=== PATIENT | male | born 1945 | race Native Hawaiian/Other Pacific Islander ===

== ENCOUNTER 2016-07-01 16:04 | Inpatient (IN) | payer MEDICAID, OTHER ==
[2016-07-01 16:48] VITALS: BMI 24.2
--- NOTE | 2016-07-01 17:55 | C.PDOC ---
History Of Present Illness <Rajan Shea - Last Filed: 07/01/16 22:08> <Olivia Oropeza - Last Filed: 07/02/16 09:33> The patient presents to the ED accompanied by son for evaluation of an episode of shakiness which occurred this afternoon. As per son, patient began experiencing generalized shakiness to his bilateral arms and legs which lasted around 10-15 minutes prior to resolution. As per son, patient did not lose consciousness and had no post-ictal period. Patient states he has a slight cough , but otherwise denies any pain, sore throat, runny nose, urinary/bowel incontinence. History obtained via son due to language barrier. (MireyaRajan smith Duarte) History Per: Patient, Family (son ) History/Exam Limitations: language barrier Onset/Duration Of Symptoms: Mins Current Symptoms Are (Timing): Better Associated Symptoms Preceding Syncopal Episode: No Predromal Symptoms (Sudden Onset) Seizure Or Post-ictal Symptoms: denies: Post-ictal Period, Incontinent Of Urine , Incontinent Of Stool Fall Associated With With Symptoms: No Additional History Per: Patient, Family <Rajan Shea - Last Filed: 07/01/16 22:08> <Olivia Oropeza - Last Filed: 07/02/16 09:33> Chief Complaint (Nursing): Weakness/Neurological Deficit Past Medical History Reviewed: Historical Data, Nursing Documentation, Vital Signs - Medical History PMH: No Chronic Diseases Surgical History: No Surg Hx Family History: States: Unknown Family Hx <Rajan Shea - Last Filed: 07/01/16 22:08> - Medical History PMH: HTN, Hypercholesterolemia Surgical History: CABG (2010) - Social History Hx Alcohol Use: Yes Hx Substance Use: No - Immunization History Hx Tetanus Toxoid Vaccination: No Hx Influenza Vaccination: No Hx Pneumococcal Vaccination: No <Olivia Oropeza - Last Filed: 07/02/16 09:33> Vital Signs: Last Vital Signs Temp 101.0 F H 07/02/16 08:57 Pulse 83 07/02/16 08:57 Resp 20 07/02/16 08:57 BP 119/62 07/02/16 08:57 Pulse Ox 97 07/02/16 08:57 Review Of Systems ENT: Negative for: Nose Discharge, Throat Pain Respiratory: Positive for: Cough (mild ) Genitourinary: Negative for: Incontinence Neurological: Positive for: Other (+generalized shakiness to arms and legs ) <Rajan Shea - Last Filed: 07/01/16 22:08> Physical Exam - Physical Exam Appears: Non-toxic, No Acute Distress Skin: Normal Color, Warm, Dry Head: Atraumatic, Normacephalic Eye(s): bilateral: Normal Inspection, EOMI Oral Mucosa: Moist Neck: Normal ROM, Supple Chest: Symmetrical, No Deformity, No Tenderness Cardiovascular: Rhythm Regular, No Murmur Respiratory: Normal Breath Sounds, No Rales, No Rhonchi, No Wheezing Back: Normal Inspection, No Vertebral Tenderness, No Paraspinal Tenderness Extremity: Normal ROM, Capillary Refill (less than 2 seconds) Neurological/Psych: Oriented x3, Normal Speech, Normal Cognition Gait: Steady <Rajan Shea - Last Filed: 07/01/16 22:08> ED Course And Treatment - Laboratory Results Result Diagrams: 07/01/16 19:39 07/01/16 19:39 ECG: Interpreted By Me, Viewed By Me ECG Rhythm: Sinus Tachycardia Interpretation Of ECG: Sinus Tachycardia at rate 104. Right Bundle Branch Block. 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 Rate From EC O2 Sat by Pulse Oximetry: 100 (on RA) Pulse Ox Interpretation: Normal Progress Note: labs, EKG, CXR ordered and reviewed. Patient received Tylenol PO and IV Fluids. <Rajan Shea - Last Filed: 07/01/16 22:08> - Laboratory Results Result Diagrams: 07/01/16 19:39 07/01/16 19:39 O2 Sat by Pulse Oximetry: 98 <Olivia Oropeza - Last Filed: 07/02/16 09:33> Disposition <Rajan Shea - Last Filed: 07/01/16 22:08> <Olivia Oropeza - Last Filed: 07/02/16 09:33> - Disposition Disposition: HOSPITALIZED - Scribe Statement The provider has reviewed the documentation as recorded by the Scribe (Danielle Gonzalez) <Rajan Shea - Last Filed: 07/01/16 22:08> <Olivia Oropeza - Last Filed: 07/02/16 09:33> - Scribe Statement Provider Attestation: All medical record entries made by the Scribe were at my direction and personally dictated by me. I have reviewed the chart and agree that the record accurately reflects my personal performance of the history, physical exam, medical decision making, and the department course for this patient. I have also personally directed, reviewed, and agree with the discharge instructions and disposition. (Rajan Shea) Addendum <Olivia Oropeza - Last Filed: 07/02/16 09:33> Addendum: 07/02/16 09:33 This patient was not seen by me. My name is on his chart by error. (Olivia Oropeza)
[2016-07-01] MEDS ORDERED: Sodium Chloride 0.9% 1,000 ML IV ONE (19:13)
[2016-07-01 19:42] LABS: BASO % 0.3 % (0.0-2.0); EOS # 0.1 K/uL (0.0-0.7); EOS % 1.5 % (0.0-4.0); LYMPH # 0.8 K/uL (1.0-4.3); LYMPH % 9.1 % (20.0-40.0); MEAN CELL VOLUME 99.3 fL (80.0-94.0); MEAN CORPUSCULAR HEMOGLOBIN 33.3 pg (27.0-31.0); MEAN CORPUSCULAR HGB CONC 33.6 g/dL (33.0-37.0); MEAN PLATELET VOLUME 9.4 fL (7.2-11.7); MONO # 1.2 K/uL (0.0-0.8); MONO % 13.1 % (0.0-10.0); PLATELET COUNT 225 K/uL (130-400); RED CELL DISTRIBUTION WIDTH 13.7 % (11.5-14.5); WHITE BLOOD COUNT 9.2 K/uL (4.8-10.8)
[2016-07-01 19:51] LABS: ALB/GLOB RATIO 1.1 (1.0-2.1); BILIRUBIN,TOTAL 1.6 mg/dL (0.2-1.3); TOTAL PROTEIN 6.8 g/dL (6.3-8.3)
[2016-07-01 19:52] LABS: CALCIUM 9.2 mg/dl (8.6-10.4); MAGNESIUM 2.1 mg/dL (1.6-2.3)
[2016-07-01 19:54] LABS: RBC URINE 8 /hpf (0-3); URINE BACTERIA RARE (<OCC); URINE BILIRUBIN NEGATIVE (NEGATIVE); URINE BLOOD 2+ (NEGATIVE); URINE GLUCOSE (UA) 3+ mg/dL (Normal); URINE KETONE NEGATIVE (NEGATIVE); URINE LEUKOCYTE ESTERASE NEG Leu/uL (Negative); URINE PROTEIN 2+ mg/dL (NEGATIVE); URINE UROBILINOGEN NORMAL mg/dL (0.2-1.0); WBC URINE 2 /hpf (0-5)
[2016-07-01 19:55] LABS: URINE COLOR YELLOW (YELLOW)
[2016-07-01 20:18] LABS: EOSINOPHIL 2 % (0-4); NEUTROPHIL 80 % (50-75); TOTAL CELLS COUNTED 100
[2016-07-01 20:19] LABS: LARGE PLATELETS PRESENT
[2016-07-01 21:02] LABS: VENOUS BLOOD GAS BASE EXCESS -5.2 mmol/L (0.0-2.0); VENOUS BLOOD GAS PCO2 40 mmHg (40-60); VENOUS BLOOD PH 7.32 (7.32-7.43)
--- NOTE | 2016-07-02 01:18 | CP.PCM.HP ---
<Yajaira Baker - Last Filed: 07/02/16 05:32> History of Present Illness - History of Present Illness History of Present Illness: Internal medicine H & P for Dr. Marv Baker, PGY-1 Pt S & E at bedside. 70M w/DM, HTN, HLD, Hx DE s/p CABG admitted for acute on chronic renal failure , fever. History supplemented by son/[id number]- they report that pt had abnormal behavior on day of admission, was "talking low", had whole body shaking , complaining of fever, temperature taken at home was 1013. They report that pt does not take evening diabetes medication unless he eats something sweet. Pt has not been to see PMD in approximately 1 yr. Pt admits to F/C, feels cold, myalgias, cough. Pt denies N/V, SOB, CP, abdominal pain, headache, vision changes, changes to bowel or bladder habits, polyphagia, polydipsia, hematuria, hematochezia, numbness or tingling of extremities. PMH: See above PSH CABG - 3 vessel disease All: NKA SH: Drinks 100ml of Scotch nightly, uses chewing tobacco, denies smoking cigarettes, denies illicit drugs PMD: [facility] Present on Admission - Present on Admission Any Indicators Present on Admission: No History of DVT/PE: No History of Uncontrolled Diabetes: No Urinary Catheter: No Decubitus Ulcer Present: No Review of Systems - Review of Systems All systems: reviewed and no additional remarkable complaints except - Constitutional Constitutional: Chills, Fever. absent: Excessive Sweating, Headache - EENT Eyes: absent: Change in Vision Nose/Mouth/Throat: absent: Sore Throat - Cardiovascular Cardiovascular: absent: Chest Pain, Diaphoresis, Leg Edema - Respiratory Respiratory: Cough. absent: Wheezing - Gastrointestinal Gastrointestinal: absent: Abdominal Pain, Constipation, Diarrhea, Hematemesis, Hematochezia, Nausea, Vomiting - Genitourinary Genitourinary: absent: Dysuria, Hematuria - Musculoskeletal Musculoskeletal: Myalgias - Integumentary Integumentary: absent: Rash - Neurological Neurological: absent: Numbness, Tingling Past Patient History - Past Social History Smoking Status: Never Smoked - CARDIAC Hx Hypercholesterolemia: Yes Hx Hypertension: Yes - ENDOCRINE/METABOLIC Hx Endocrine Disorders: Yes Hx Diabetes Mellitus Type 2: Yes - PSYCHIATRIC Hx Substance Use: No - SURGICAL HISTORY Hx Coronary Artery Bypass Graft: Yes (2010) - ANESTHESIA Hx Anesthesia: Yes Hx Anesthesia Reactions: No Meds Allergies/Adverse Reactions: Allergies Allergy/AdvReac Type Severity Reaction Status Date / Time No Known Allergies Allergy Verified 07/01/16 16:37 Physical Exam - Constitutional Appears: Non-toxic, No Acute Distress, Other (pt laying under blanket with family's coats on top, is wearing knitted hat) - Head Exam Head Exam: ATRAUMATIC, NORMAL INSPECTION, NORMOCEPHALIC - Eye Exam Eye Exam: EOMI, Normal appearance, PERRL Pupil Exam: NORMAL ACCOMODATION, PERRL - ENT Exam ENT Exam: Mucous Membranes Moist, Normal Exam - Neck Exam Neck exam: Positive for: Full Rom, Normal Inspection - Respiratory Exam Respiratory Exam: Clear to Auscultation Bilateral, NORMAL BREATHING PATTERN. absent: Accessory Muscle Use, Decreased Breath Sounds, Rales, Rhonchi, Wheezes, Respiratory Distress - Cardiovascular Exam Cardiovascular Exam: REGULAR RHYTHM, +S1, +S2 - GI/Abdominal Exam GI & Abdominal Exam: Normal Bowel Sounds, Soft. absent: Distended, Firm, Guarding, Hernia, Tenderness - Extremities Exam Extremities exam: Positive for: normal inspection. Negative for: pedal edema - Back Exam Back exam: NORMAL INSPECTION. absent: tenderness - Neurological Exam Neurological exam: Alert, CN II-XII Intact, Oriented x3 - Psychiatric Exam Psychiatric exam: Normal Affect, Normal Mood - Skin Skin Exam: Dry, Intact, Normal Color, Warm (hot) Results - Vital Signs Recent Vital Signs: Last Vital Signs Temp 99.5 F 07/01/16 22:20 Pulse 90 07/01/16 22:20 Resp 20 07/01/16 22:20 BP 135/74 07/01/16 22:20 Pulse Ox 99 07/01/16 22:20 - Labs Result Diagrams: 07/01/16 19:39 07/01/16 19:39 Assessment & Plan - Assessment and Plan (Free Text) Assessment: Acute Renal Insufficiency Admit to Med-surg BUN 38 Cr 2.6 NS@100 Monitor Consider obtaining nephro consult if AM labs do not show improved renal function Fever WBC 9.2 Rapid flu neg U/A neg FU blood cxr FU urine cxr Tylenol PRN Monitor DM ISS Accuchecks FU A1c Diabetic diet Re-inforced need to be compliant with diabetic medications to pt HTN Cont home med: ASA, Lisinopril, Lopressor HLD Cont home med: Crestor Constipation Cont home med: Dulcolax GI/DVT ppx SCDs Pepcid Heparin Dispo PT eval VS Q8H DW attending - Date & Time Date: 07/01/16 Time: 10:00 <Dev Almaguer - Last Filed: 07/02/16 06:40> Results - Vital Signs Recent Vital Signs: Last Vital Signs Temp 98.3 F 07/02/16 02:01 Pulse 92 H 07/02/16 03:08 Resp 18 07/02/16 03:08 BP 133/88 07/02/16 02:01 Pulse Ox 98 07/02/16 03:08 - Labs Result Diagrams: 07/01/16 19:39 07/01/16 19:39 Assessment & Plan - Date & Time Date: 07/02/16 (I have seen and examined the patient. I agree with the findings and plan of care as documented by Dr. Baker. Patient with acute renal insufficiency. Feeling ill recently with fevers. Dehydration may be contributing to acute renal insufficiency. IVF and recheck renal status in AM. Check blood and urine cultures. Check rapid flu. For history of diabetes, accucheck and sliding scale. Monitor for acute changes.) Time: 06:39 Attending/Attestation - Attestation I have personally seen and examined this patient.: Yes I have fully participated in the care of the patient.: Yes I have reviewed all pertinent clinical information: Yes
[2016-07-02] MEDS: Sodium Chloride 0.9% 1,000 ML IV SCH ×3 (02:22→21:00)
[2016-07-02] MEDS: (Novolog) Insulin Aspart, Recombinant 100 u/ml 10 ml vial SC SCH ×4 (09:01→22:01)
[2016-07-02] MEDS: Metoprolol Succinate 50 mg XL Tab PO SCH (10:03)
[2016-07-02] MEDS: Ciprofloxacin 400mg/200ml D5W 200 ML IVPB SCH (12:40)
[2016-07-02 13:19] LABS: BASO % 0.7 % (0.0-2.0); EOS # 0.2 K/uL (0.0-0.7); EOS % 2.9 % (0.0-4.0); HEMATOCRIT 30.7 % (35.0-51.0); LYMPH # 0.9 K/uL (1.0-4.3); LYMPH % 13.2 % (20.0-40.0); MEAN CELL VOLUME 99.5 fL (80.0-94.0); MEAN CORPUSCULAR HEMOGLOBIN 33.6 pg (27.0-31.0); MEAN CORPUSCULAR HGB CONC 33.8 g/dL (33.0-37.0); MEAN PLATELET VOLUME 8.8 fL (7.2-11.7); MONO # 0.8 K/uL (0.0-0.8); MONO % 11.2 % (0.0-10.0); NRBC % 0.1 % (0.0-2.0); RED CELL DISTRIBUTION WIDTH 13.7 % (11.5-14.5); WHITE BLOOD COUNT 6.9 K/uL (4.8-10.8)
[2016-07-02 13:30] LABS: POTASSIUM 4.5 mmol/L (3.6-5.2)
[2016-07-02 13:32] LABS: BILIRUBIN,TOTAL 1.6 mg/dL (0.2-1.3); TOTAL PROTEIN 5.8 g/dL (6.3-8.3)
[2016-07-02 13:33] LABS: CALCIUM 8.3 mg/dl (8.6-10.4)
[2016-07-02] MEDS: metroNIDAZOLE IV 500 mg/100 ml 100 ML IVPB SCH ×2 (14:18→22:00)
--- NOTE | 2016-07-02 16:59 | CP.PCM.PN ---
Subjective - Date & Time of Evaluation Date of Evaluation: 07/02/16 Time of Evaluation: 08:55 - Subjective Subjective: Medicine Note- Hospitalist Service Patient was seen and examined at bedside. Patient reports that he has some generalized weakness. Otherwise, patient reports no acute complaints. He is tolerating PO Diet, normal bowel movements. Fevers overnight, patient is unsure why. No additional events overnight. Objective - Vital Signs/Intake and Output Vital Signs (last 24 hours): Temp Pulse Resp BP Pulse Ox 97.8 F 83 20 119/62 98 07/02/16 11:02 07/02/16 08:57 07/02/16 08:57 07/02/16 08:57 07/02/16 09:33 Intake and Output: 07/02/16 07/02/16 06:59 18:59 Intake Total 620 Balance 620 - Medications Medications: Current Medications Acetaminophen (Tylenol 325mg Tab) 650 mg PO Q6 PRN PRN Reason: Fever >100.4 F Last Admin: 07/02/16 10:02 Dose: 650 mg Aspirin (Ecotrin) 81 mg PO DAILY [facility] Last Admin: 07/02/16 10:01 Dose: 81 mg Bisacodyl (Dulcolax) 10 mg PO HS [facility] Famotidine (Pepcid) 20 mg PO BID [facility] Last Admin: 07/02/16 10:01 Dose: 20 mg Heparin Sodium (Porcine) (Heparin) 5,000 units SC Q12 [facility] Last Admin: 07/02/16 10:02 Dose: 5,000 units Sodium Chloride (Sodium Chloride 0.9%) 1,000 mls @ 100 mls/hr IV .Q10H [facility] Last Admin: 07/02/16 12:43 Dose: 100 mls/hr Ciprofloxacin (Cipro 400mg/200ml Dsw) 200 mls @ 133 mls/hr IVPB DAILY [facility] Stop: 07/07/16 11:46 Last Admin: 07/02/16 12:40 Dose: 133 mls/hr Metronidazole (Flagyl) 100 mls @ 100 mls/hr IVPB Q8 [facility] Stop: 07/07/16 14:01 Last Admin: 07/02/16 14:18 Dose: 100 mls/hr Insulin Aspart (Novolog) 0 unit SC ACHS [facility] PRN Reason: Protocol Last Admin: 07/02/16 12:41 Dose: 3 unit Lisinopril (Zestril) 10 mg PO DAILY [facility] Last Admin: 07/02/16 10:03 Dose: 10 mg Metoprolol Succinate (Toprol Xl) 50 mg PO DAILY [facility] Last Admin: 07/02/16 10:03 Dose: 50 mg Rosuvastatin Calcium (Crestor) 5 mg PO HS [facility] - Labs Labs: 07/02/16 13:15 07/02/16 13:15 Assessment and Plan - Assessment and Plan (Free Text) Assessment: Acute Renal Insufficiency Admit to Med-surg BUN/Cr improved slightly from 38/2.6 to 33/2.1 NS@100 Monitor Fever of unknown origin WBC 9.2 Multiple fevers overnight- Tmax 101.2 on 07/01/16 Rapid flu neg U/A neg Blood cx- pending Urine Cx- no growth Tylenol PRN Monitor DM ISS Accuchecks FU A1c Diabetic diet Re-inforced need to be compliant with diabetic medications to pt HTN Cont home med: ASA, Lisinopril, Lopressor HLD Cont home med: Crestor 5mg PO HS Constipation Cont home med: Dulcolax 10mg PO HS GI/DVT ppx SCDs Pepcid 20mg PO BID Heparin 5000U SC Q12h
--- NOTE | 2016-07-02 18:14 | RAD ---
HISTORY: Sepsis Patient COMPARISON: Comparison chest dated 05/15/2013. FINDINGS: LUNGS: Poor inspiration with low lung volumes and mild crowded bronchovascular markings. Suspect mild bibasilar atelectasis left greater than right. . PLEURA: No significant pleural effusion identified, no pneumothorax apparent. CARDIOVASCULAR: Cardiomegaly. Sternotomy wires. OSSEOUS STRUCTURES: Mild multilevel degenerative spondylosis of the thoracic spine VISUALIZED UPPER ABDOMEN: Normal. OTHER FINDINGS: None. IMPRESSION: Poor inspiration with low lung volumes and mild crowded bronchovascular markings. Suspect mild bibasilar atelectasis left greater than right. .
[2016-07-02] MEDS: Bisacodyl 5mg EC Tab PO SCH (21:59)
[2016-07-03] MEDS: metroNIDAZOLE IV 500 mg/100 ml 100 ML IVPB SCH ×3 (05:46→22:09)
[2016-07-03] MEDS: Sodium Chloride 0.9% 1,000 ML IV SCH ×4 (05:47→22:11)
--- NOTE | 2016-07-03 06:54 | CP.PCM.PN ---
<RobbyMoise - Last Filed: 07/03/16 22:22> Subjective - Date & Time of Evaluation Date of Evaluation: 07/03/16 Time of Evaluation: 08:30 - Subjective Subjective: Medicine Note- Hospitalist Service Patient was seen and examined at bedside. Patient reports that he has a mildly sore throat and persistent cough. Duaghter and son was at bedside. Per the son , patient has been having interval moments of confusion and memory loss. He said the nurse told him that the patient had pulled his IV and was sitting in blood soaked sheets for an unknown amount of time. Patient reported he had no recollection of this. The son also states that the other day, he came to visit the patient for some time and left. Later on, a different family member had visited the patient and stated that the patient was asking for his son and where he was, not recalling that the son had visited earlier that day. Today, the patient reports that he does recall his son visiting yesterday. Objective - Vital Signs/Intake and Output Vital Signs (last 24 hours): Temp Pulse Resp BP Pulse Ox 98.2 F 89 20 115/68 100 07/03/16 00:00 07/03/16 00:00 07/03/16 00:00 07/03/16 00:00 07/03/16 00:00 Intake and Output: 07/02/16 07/03/16 18:59 06:59 Intake Total 1820 1800 Balance 1820 1800 - Medications Medications: Current Medications Acetaminophen (Tylenol 325mg Tab) 650 mg PO Q6 PRN PRN Reason: Fever >100.4 F Last Admin: 07/02/16 10:02 Dose: 650 mg Aspirin (Ecotrin) 81 mg PO DAILY [facility] Last Admin: 07/02/16 10:01 Dose: 81 mg Bisacodyl (Dulcolax) 10 mg PO HS [facility] Last Admin: 07/02/16 21:59 Dose: 10 mg Famotidine (Pepcid) 20 mg PO BID [facility] Last Admin: 07/02/16 18:01 Dose: 20 mg Heparin Sodium (Porcine) (Heparin) 5,000 units SC Q12 [facility] Last Admin: 07/02/16 22:00 Dose: 5,000 units Sodium Chloride (Sodium Chloride 0.9%) 1,000 mls @ 100 mls/hr IV .Q10H [facility] Last Admin: 07/03/16 05:47 Dose: 100 mls/hr Ciprofloxacin (Cipro 400mg/200ml Dsw) 200 mls @ 133 mls/hr IVPB DAILY [facility] Stop: 07/07/16 11:46 Last Admin: 07/02/16 12:40 Dose: 133 mls/hr Metronidazole (Flagyl) 100 mls @ 100 mls/hr IVPB Q8 [facility] Stop: 07/07/16 14:01 Last Admin: 07/03/16 05:46 Dose: 100 mls/hr Insulin Aspart (Novolog) 0 unit SC ACHS [facility] PRN Reason: Protocol Last Admin: 07/02/16 22:01 Dose: Not Given Lisinopril (Zestril) 10 mg PO DAILY [facility] Last Admin: 07/02/16 10:03 Dose: 10 mg Metoprolol Succinate (Toprol Xl) 50 mg PO DAILY [facility] Last Admin: 07/02/16 10:03 Dose: 50 mg Rosuvastatin Calcium (Crestor) 5 mg PO HS [facility] Last Admin: 07/02/16 21:59 Dose: 5 mg - Labs Labs: 07/02/16 13:15 07/02/16 13:15 - Constitutional Appears: Non-toxic, No Acute Distress - Head Exam Head Exam: ATRAUMATIC, NORMAL INSPECTION, NORMOCEPHALIC - Eye Exam Pupil Exam: NORMAL ACCOMODATION, PERRL - ENT Exam ENT Exam: Mucous Membranes Moist - Respiratory Exam Respiratory Exam: Clear to Ausculation Bilateral, NORMAL BREATHING PATTERN. absent: Prolonged Expiratory Phase, Rales, Rhonchi, Wheezes - Cardiovascular Exam Cardiovascular Exam: REGULAR RHYTHM, +S1, +S2 - GI/Abdominal Exam GI & Abdominal Exam: Soft, Normal Bowel Sounds. absent: Tenderness, Diminished Bowel Sounds, Hypoactive Bowel Sounds - Neurological Exam Neurological Exam: Alert, Awake, Oriented x3 - Psychiatric Exam Psychiatric exam: Normal Affect, Normal Mood - Skin Skin Exam: Dry, Intact, Normal Color, Warm Assessment and Plan - Assessment and Plan (Free Text) Assessment: Acute Renal Insufficiency Admit to Med-surg BUN/Cr continues to improve. 27/2.0 at this time. NS@100 Monitor Fever of unknown origin WBC 8.2 Multiple fevers overnight- Tmax 101.2 on 07/01/16, last fever was 07/02/16 at 10am CXR- 07/02/16- Poor inspiration with low lung volumes and mild crowded bronchovascular markings. Suspect mild bibasilar atelectasis left greater than right. Rapid flu neg CXR- 07/03/16- PA / Lat- Somewhat limited eu to partial obsculration of the medial lung apices by overlying facial soft tissue and mandible artifact. Poor inspiration with llow lung volumes, mild crowded bronchovascular markings and mild bibasilar atelectasis U/A neg Blood cx- no growth after 24 hrs Urine Cx- no growth Tylenol PRN Procalcitonin elevated at 0.5 Started on Cipro 400mg Q12h and Flagyl 500mg Q8h for broad spectrum coverage Monitor Intermittent AMS Possible delirium due to fever of unknown origin Ordered Head CT w/o contrast to rule out intracranial abnormalities Will continue to monitor and evaluate. DM ISS Accuchecks FU A1c Diabetic diet Re-inforced need to be compliant with diabetic medications to pt HTN Cont home med: Asa 81mg PO Daily, Lisinopril 10mg PO Daily, Toprol XL 50mg PO Daily H[facility] Cont home med: Crestor 5mg PO HS Constipation Cont home med: Dulcolax 10mg PO HS GI/DVT ppx SCDs Pepcid 20mg PO BID Heparin 5000U SC Q12h <Margarita Cardenas V - Last Filed: 07/04/16 09:13> Objective - Vital Signs/Intake and Output Vital Signs (last 24 hours): Temp Pulse Resp BP Pulse Ox 98.4 F 89 19 125/69 99 07/03/16 15:02 07/03/16 22:15 07/03/16 15:02 07/03/16 15:02 07/03/16 15:02 - Medications Medications: Current Medications Acetaminophen (Tylenol 325mg Tab) 650 mg PO Q6 PRN PRN Reason: Fever >100.4 F Last Admin: 07/02/16 10:02 Dose: 650 mg Albuterol/Ipratropium (Duoneb 3 Mg/0.5 Mg (3 Ml) Ud) 3 ml INH RQ6 [facility] Last Admin: 07/03/16 22:14 Dose: 3 ml Aspirin (Ecotrin) 81 mg PO DAILY [facility] Last Admin: 07/03/16 10:54 Dose: 81 mg Bisacodyl (Dulcolax) 10 mg PO HS [facility] Last Admin: 07/03/16 22:08 Dose: 10 mg Famotidine (Pepcid) 20 mg PO BID [facility] Last Admin: 07/03/16 17:11 Dose: 20 mg Heparin Sodium (Porcine) (Heparin) 5,000 units SC Q12 [facility] Last Admin: 07/03/16 22:11 Dose: 5,000 units Ciprofloxacin (Cipro 400mg/200ml Dsw) 200 mls @ 133 mls/hr IVPB DAILY [facility] Stop: 07/07/16 11:46 Last Admin: 07/03/16 10:53 Dose: 133 mls/hr Metronidazole (Flagyl) 100 mls @ 100 mls/hr IVPB Q8 [facility] Stop: 07/07/16 14:01 Last Admin: 07/03/16 22:09 Dose: 100 mls/hr Sodium Chloride (Sodium Chloride 0.9%) 1,000 mls @ 50 mls/hr IV .Q20H [facility] Last Admin: 07/03/16 22:50 Dose: 50 mls/hr Insulin Aspart (Novolog) 0 unit SC ACHS [facility] PRN Reason: Protocol Last Admin: 07/03/16 22:10 Dose: Not Given Lisinopril (Zestril) 10 mg PO DAILY [facility] Last Admin: 07/03/16 10:54 Dose: 10 mg Metoprolol Succinate (Toprol Xl) 50 mg PO DAILY [facility] Last Admin: 07/03/16 10:55 Dose: 50 mg Promethazine HCl (Phenergan Syrup) 12.5 mg PO Q6 PRN PRN Reason: Cough Last Admin: 07/03/16 22:15 Dose: 12.5 mg Rosuvastatin Calcium (Crestor) 5 mg PO HS [facility] Last Admin: 07/03/16 22:09 Dose: 5 mg Saccharomyces Boulardii (Florastor) 250 mg PO Q12H [facility] Last Admin: 07/03/16 23:39 Dose: 250 mg Trazodone HCl (Desyrel) 25 mg PO HS [facility] Stop: 07/04/16 23:51 Attending/Attestation - Attestation I have personally seen and examined this patient.: Yes I have fully participated in the care of the patient.: Yes I have reviewed all pertinent clinical information, including history, physical exam and plan: Yes Notes (Text): This is late computer entry for 3/19/17. Patient seen, examined, and case discussed with day-time resident. Patient seen and discussed with family. Patient reports sore throat and cough, repeat chest xray completed but shows poor inspiratory effort. Patient BUN/Cr improving on IV fluids, continue to monitor. Patient ordered for serologies including Legionella, Mycoplasma, Strep pneumoniae. Patient's has mild procalcitonin indicating bacterial source to his fever. Patient ordered for CT head w/o contrast given his periods of delirium/altered mental status per discussion with family. Follow [id number]. Patient provided cough syrup prn, and mucinex.
[2016-07-03 07:13] LABS: BASO # 0.1 K/uL (0.0-0.2); BASO % 0.6 % (0.0-2.0); EOS # 0.2 K/uL (0.0-0.7); EOS % 2.1 % (0.0-4.0); HEMATOCRIT 29.2 % (35.0-51.0); LYMPH # 0.8 K/uL (1.0-4.3); LYMPH % 10.3 % (20.0-40.0); MEAN CELL VOLUME 97.9 fL (80.0-94.0); MEAN CORPUSCULAR HEMOGLOBIN 32.6 pg (27.0-31.0); MEAN CORPUSCULAR HGB CONC 33.3 g/dL (33.0-37.0); MEAN PLATELET VOLUME 8.9 fL (7.2-11.7); MONO % 11.7 % (0.0-10.0); RED CELL DISTRIBUTION WIDTH 13.9 % (11.5-14.5); WHITE BLOOD COUNT 8.2 K/uL (4.8-10.8)
[2016-07-03 07:19] LABS: POTASSIUM 3.8 mmol/L (3.6-5.2)
[2016-07-03 07:21] LABS: ALB/GLOB RATIO 0.9 (1.0-2.1); BILIRUBIN,TOTAL 1.6 mg/dL (0.2-1.3)
[2016-07-03 07:22] LABS: CALCIUM 8.1 mg/dl (8.6-10.4)
[2016-07-03] MEDS: (Novolog) Insulin Aspart, Recombinant 100 u/ml 10 ml vial SC SCH ×4 (08:38→22:10)
[2016-07-03] MEDS: Ciprofloxacin 400mg/200ml D5W 200 ML IVPB SCH (10:53)
[2016-07-03] MEDS: Metoprolol Succinate 50 mg XL Tab PO SCH (10:55)
[2016-07-03] MEDS: Saccharomyces Boulardi 250 mg Cap PO SCH ×2 (12:06→23:39)
--- NOTE | 2016-07-03 13:01 | RAD ---
HISTORY: fevers COMPARISON: Comparison chest dated 07/01/2016. FINDINGS: LUNGS: Note that the study is somewhat limited due to partial obscuration of the medial lung apices by overlying facial soft tissue and mandible artifact. Poor inspiration with low lung volumes, mild crowded bronchovascular markings and mild bibasilar atelectasis. PLEURA: No significant pleural effusion identified, no pneumothorax apparent. CARDIOVASCULAR: Normal. OSSEOUS STRUCTURES: No significant abnormalities. VISUALIZED UPPER ABDOMEN: Normal. OTHER FINDINGS: None. IMPRESSION: Somewhat limited due to partial obscuration of the medial lung apices by overlying facial soft tissue and mandible artifact. Poor inspiration with low lung volumes, mild crowded bronchovascular markings and mild bibasilar atelectasis.
[2016-07-03] MEDS: Promethazine 12.5 mg/10 ml Syrup PO PRN ×2 (15:09→22:15)
[2016-07-03] MEDS: Bisacodyl 5mg EC Tab PO SCH (22:08)
[2016-07-03] MEDS: Albuterol-Ipratrop 3 mg / 0.5 (3 ml) UD INH SCH (22:14)
[2016-07-03] MEDS ORDERED: Sodium Chloride 0.9% 1,000 ML IV SCH (22:45)
[2016-07-04] MEDS: Albuterol-Ipratrop 3 mg / 0.5 (3 ml) UD INH SCH ×4 (01:08→19:52)
[2016-07-04] MEDS ORDERED: Albuterol-Ipratrop 3 mg / 0.5 (3 ml) UD INH SCH (02:00)
[2016-07-04] MEDS: metroNIDAZOLE IV 500 mg/100 ml 100 ML IVPB SCH ×4 (05:33→21:57)
[2016-07-04 07:55] LABS: BASO % 0.5 % (0.0-2.0); EOS # 0.1 K/uL (0.0-0.7); EOS % 1.2 % (0.0-4.0); HEMATOCRIT 29.8 % (35.0-51.0); LYMPH # 0.7 K/uL (1.0-4.3); LYMPH % 9.3 % (20.0-40.0); MEAN CORPUSCULAR HEMOGLOBIN 33.1 pg (27.0-31.0); MEAN CORPUSCULAR HGB CONC 33.5 g/dL (33.0-37.0); MEAN PLATELET VOLUME 9.1 fL (7.2-11.7); MONO # 0.7 K/uL (0.0-0.8); MONO % 9.4 % (0.0-10.0); PLATELET COUNT 268 K/uL (130-400); RED CELL DISTRIBUTION WIDTH 14.4 % (11.5-14.5); WHITE BLOOD COUNT 7.3 K/uL (4.8-10.8)
[2016-07-04] MEDS: (Novolog) Insulin Aspart, Recombinant 100 u/ml 10 ml vial SC SCH ×4 (07:56→21:58)
[2016-07-04 08:05] LABS: CALCIUM 7.7 mg/dl (8.6-10.4); TOTAL PROTEIN 5.7 g/dL (6.3-8.3)
[2016-07-04 08:06] LABS: MAGNESIUM 1.8 mg/dL (1.6-2.3)
[2016-07-04 08:28] LABS: EOSINOPHIL 1 % (0-4); NEUTROPHIL 85 % (50-75); TOTAL CELLS COUNTED 100
[2016-07-04] MEDS: Sodium Chloride 0.9% 1,000 ML IV SCH ×2 (08:40→21:58)
--- NOTE | 2016-07-04 10:03 | CP.PCM.PN ---
<Yajaira Baker - Last Filed: 07/04/16 17:07> Subjective - Date & Time of Evaluation Date of Evaluation: 07/04/16 Time of Evaluation: 07:30 - Subjective Subjective: Internal medicine progress note for Dr. Moreno- Yajaira Baker, PGY-1 Pt S & E at bedside. Pt resting comfortably in bed, son at bedside reports that pt has been increasingly confused, is not behaving normally, is sleeping much more than normal, is not aware when he needs to urinate- ended up urinating on the floor, has been coughing a lot, continues to have fevers, complained of genital pain yesterday. Has not been eating, complaining of sore throat with swallowing. Patient arousable for exam - states that "everything is good". Objective - Vital Signs/Intake and Output Vital Signs (last 24 hours): Temp Pulse Resp BP Pulse Ox 99.1 F 81 20 123/66 97 07/04/16 07:00 07/04/16 07:00 07/04/16 07:00 07/04/16 07:00 07/04/16 07:00 - Medications Medications: Current Medications Acetaminophen (Tylenol 325mg Tab) 650 mg PO Q6 PRN PRN Reason: Fever >100.4 F Last Admin: 07/04/16 06:01 Dose: 650 mg Albuterol/Ipratropium (Duoneb 3 Mg/0.5 Mg (3 Ml) Ud) 3 ml INH RQ6 [facility] Last Admin: 07/04/16 08:36 Dose: Not Given Aspirin (Ecotrin) 81 mg PO DAILY [facility] Last Admin: 07/03/16 10:54 Dose: 81 mg Bisacodyl (Dulcolax) 10 mg PO HS [facility] Last Admin: 07/03/16 22:08 Dose: 10 mg Famotidine (Pepcid) 20 mg PO DAILY [facility] Heparin Sodium (Porcine) (Heparin) 5,000 units SC Q12 [facility] Last Admin: 07/03/16 22:11 Dose: 5,000 units Ciprofloxacin (Cipro 400mg/200ml Dsw) 200 mls @ 133 mls/hr IVPB DAILY [facility] Stop: 07/07/16 11:46 Last Admin: 07/03/16 10:53 Dose: 133 mls/hr Metronidazole (Flagyl) 100 mls @ 100 mls/hr IVPB Q8 [facility] Stop: 07/07/16 14:01 Last Admin: 07/04/16 05:33 Dose: 100 mls/hr Sodium Chloride (Sodium Chloride 0.9%) 1,000 mls @ 75 mls/hr IV .[id number] [facility] Last Admin: 07/04/16 08:40 Dose: Not Given Insulin Aspart (Novolog) 0 unit SC ACHS [facility] PRN Reason: Protocol Last Admin: 07/04/16 07:56 Dose: Not Given Lisinopril (Zestril) 10 mg PO DAILY [facility] Last Admin: 07/03/16 10:54 Dose: 10 mg Metoprolol Succinate (Toprol Xl) 50 mg PO DAILY [facility] Last Admin: 07/03/16 10:55 Dose: 50 mg Promethazine HCl/Codeine (Phenergan/Codeine Oral Syrup) 5 ml PO Q4 PRN PRN Reason: Cough Rosuvastatin Calcium (Crestor) 5 mg PO HS [facility] Last Admin: 07/03/16 22:09 Dose: 5 mg Saccharomyces Boulardii (Florastor) 250 mg PO Q12H [facility] Last Admin: 07/03/16 23:39 Dose: 250 mg Trazodone HCl (Desyrel) 25 mg PO HS [facility] Stop: 07/04/16 23:51 - Labs Labs: 07/04/16 07:38 07/04/16 07:38 - Constitutional Appears: Non-toxic, No Acute Distress, Confused - Head Exam Head Exam: ATRAUMATIC, NORMAL INSPECTION, NORMOCEPHALIC - Eye Exam Eye Exam: EOMI, Normal appearance, PERRL Pupil Exam: NORMAL ACCOMODATION, PERRL - ENT Exam ENT Exam: Mucous Membranes Moist, Normal Exam - Neck Exam Neck Exam: Full ROM, Normal Inspection - Respiratory Exam Respiratory Exam: Decreased Breath Sounds, Wheezes (B/L), NORMAL BREATHING PATTERN. absent: Accessory Muscle Use, Chest Wall Tenderness, Clear to Ausculation Bilateral, Rales, Rhonchi, Respiratory Distress - Cardiovascular Exam Cardiovascular Exam: REGULAR RHYTHM, +S1, +S2 - GI/Abdominal Exam GI & Abdominal Exam: Soft, Normal Bowel Sounds. absent: Tenderness - Extremities Exam Extremities Exam: Normal Inspection. absent: Pedal Edema - Neurological Exam Neurological Exam: Alert, Awake, CN II-XII Intact. absent: Oriented x3 ( oriented to person, not place or time) - Psychiatric Exam Psychiatric exam: Normal Affect, Normal Mood - Skin Skin Exam: Dry, Intact, Normal Color, Warm Assessment and Plan - Assessment and Plan (Free Text) Assessment: Acute Renal Insufficiency BUN/Cr continues to improve. 27/2.0 at this time. NS@100 Monitor Fever of unknown origin WBC 7.3 Febrile overnight last 24H, Tmax 101.5 CXR- 07/02/16- Poor inspiration with low lung volumes and mild crowded bronchovascular markings. Suspect mild bibasilar atelectasis left greater than right. Rapid flu neg CXR- 07/03/16- PA / Lat- Somewhat limited due to partial obscuration of the medial lung apices by overlying facial soft tissue and mandible artifact. Poor inspiration with llow lung volumes, mild crowded bronchovascular markings and mild bibasilar atelectasis U/A neg Blood cx- no growth after 48 hrs Urine Cx- no growth Tylenol PRN Procalcitonin elevated at 0.5 Started on Cipro 400mg Q12h and Flagyl 500mg Q8h for broad spectrum coverage FU CT chest Repeat U/A neg for nitrates or leuk esterase FU sputum cxr FU bladder scan Throat lozenge for sore throat Monitor Intermittent AMS Possible delirium due to fever of unknown origin CT brain w/findings of No acute intracranial hemorrhage. Mild -moderate chronic white matter ischemic changes as above. There also appear to be a few scattered chronic bilateral basal nuclei lacunar type infarcts. Moderate generalized volume loss MRI brain w/findings of Minimal left mastoid air cell opacification. Will continue to monitor and evaluate. DM ISS Accuchecks A1c 7.9 Diabetic diet Re-inforced need to be compliant with diabetic medications to pt HTN Cont home med: Asa 81mg PO Daily, Lisinopril 10mg PO Daily, Toprol XL 50mg PO Daily HLD Cont home med: Crestor 5mg PO HS Constipation Cont home med: Dulcolax 10mg PO HS GI/DVT ppx SCDs Pepcid 20mg PO BID Heparin 5000U SC Q12h DW attending <Kristopher Moreno - Last Filed: 07/04/16 17:45> Objective - Vital Signs/Intake and Output Vital Signs (last 24 hours): Temp Pulse Resp BP Pulse Ox 99.1 F 81 20 123/66 97 07/04/16 07:00 07/04/16 07:00 07/04/16 07:00 07/04/16 07:00 07/04/16 07:00 - Medications Medications: Current Medications Acetaminophen (Tylenol 325mg Tab) 650 mg PO Q6 PRN PRN Reason: Fever >100.4 F Last Admin: 07/04/16 06:01 Dose: 650 mg Albuterol/Ipratropium (Duoneb 3 Mg/0.5 Mg (3 Ml) Ud) 3 ml INH RQ6 [facility] Last Admin: 07/04/16 13:33 Dose: Not Given Aspirin (Ecotrin) 81 mg PO DAILY [facility] Last Admin: 07/04/16 10:54 Dose: 81 mg Benzocaine/Menthol (Cepacol Sore Throat) 1 chris MT Q2H PRN PRN Reason: Sore Throat Bisacodyl (Dulcolax) 10 mg PO HS [facility] Last Admin: 07/03/16 22:08 Dose: 10 mg Famotidine (Pepcid) 20 mg PO DAILY [facility] Last Admin: 07/04/16 10:54 Dose: 20 mg Heparin Sodium (Porcine) (Heparin) 5,000 units SC Q12 [facility] Last Admin: 07/04/16 10:54 Dose: 5,000 units Ciprofloxacin (Cipro 400mg/200ml Dsw) 200 mls @ 133 mls/hr IVPB DAILY [facility] Stop: 07/07/16 11:46 Last Admin: 07/04/16 10:52 Dose: 133 mls/hr Metronidazole (Flagyl) 100 mls @ 100 mls/hr IVPB Q8 [facility] Stop: 07/07/16 14:01 Last Admin: 07/04/16 15:11 Dose: 100 mls/hr Sodium Chloride (Sodium Chloride 0.9%) 1,000 mls @ 75 mls/hr IV .[id number] [facility] Last Admin: 07/04/16 08:40 Dose: Not Given Insulin Aspart (Novolog) 0 unit SC ACHS [facility] PRN Reason: Protocol Last Admin: 07/04/16 12:35 Dose: Not Given Lisinopril (Zestril) 10 mg PO DAILY [facility] Last Admin: 07/04/16 10:53 Dose: 10 mg Metoprolol Succinate (Toprol Xl) 50 mg PO DAILY [facility] Last Admin: 07/04/16 10:53 Dose: 50 mg Promethazine HCl/Codeine (Phenergan/Codeine Oral Syrup) 5 ml PO Q4 PRN PRN Reason: Cough Last Admin: 07/04/16 15:12 Dose: 5 ml Rosuvastatin Calcium (Crestor) 5 mg PO HS [facility] Last Admin: 07/03/16 22:09 Dose: 5 mg Saccharomyces Boulardii (Florastor) 250 mg PO Q12H [facility] Last Admin: 07/04/16 12:41 Dose: 250 mg Trazodone HCl (Desyrel) 25 mg PO HS [facility] Stop: 07/04/16 23:51 - Labs Labs: 07/04/16 07:38 07/04/16 07:38 Attending/Attestation - Attestation I have personally seen and examined this patient.: Yes I have fully participated in the care of the patient.: Yes I have reviewed all pertinent clinical information, including history, physical exam and plan: Yes Notes (Text): Medical Attending: Patient was seen and examined by me. Agree with the above note by the resident. The patient was with family member when we saw him. He was arousable and commuicated with his daughter at bedside. MRI without contrast was ordered and it did not show any acute findings. Currently pending on a CT of the chest as well - will also check sputum culture and senitivities. He has been coughing quite a bit and also producing a lot of sputum. He was started on IV Cipro and IV Flagyl the yesterday. Still having fevers, so will continue with these - we need to monitor the blood cultures as well thank you Kristopher Moreno
--- NOTE | 2016-07-04 10:35 | CT ---
PROCEDURE: CT HEAD WITHOUT CONTRAST. HISTORY: intervals of confusion, agitation, AMS COMPARISON: No prior study available for comparison. TECHNIQUE: Axial computed tomography images were obtained through the head/brain without intravenous contrast. Radiation dose: Total exam DLP = 849.95 mGy-cm. FINDINGS: HEMORRHAGE: No acute parenchymal, subarachnoid or extra-axial hemorrhage. BRAIN: Mild moderate chronic periventricular white matter ischemic changes are seen extending peripherally into the deep and subcortical white matter both cerebral hemispheres. There may also be a few scattered chronic bilateral basal nuclei lacunar type infarcts. Vascular calcifications are present. VENTRICLES: Moderate generalized volume loss. No evidence of obstructive hydrocephalus. CALVARIUM: No acute calvarial fractures. PARANASAL SINUSES: Unremarkable as visualized. No significant inflammatory changes. MASTOID AIR CELLS: Unremarkable as visualized. No inflammatory changes. OTHER FINDINGS: Status post bilateral cataract surgery. IMPRESSION: No acute intracranial hemorrhage. Mild -moderate chronic white matter ischemic changes as above. There also appear to be a few scattered chronic bilateral basal nuclei lacunar type infarcts. Moderate generalized volume loss
[2016-07-04] MEDS: Ciprofloxacin 400mg/200ml D5W 200 ML IVPB SCH (10:52)
[2016-07-04] MEDS: Metoprolol Succinate 50 mg XL Tab PO SCH (10:53)
[2016-07-04] MEDS: Saccharomyces Boulardi 250 mg Cap PO SCH ×2 (12:41→21:57)
[2016-07-04 15:09] LABS: THYROID STIMULATING HORMONE 2.15 mIU/L (0.46-4.68)
[2016-07-04] MEDS: Promethazine/Cod 6.25mg-10mg/5ml Syr UD PO PRN ×2 (15:12→21:56)
[2016-07-04 15:15] LABS: RBC URINE < 1 /hpf (0-3); URINE BILIRUBIN NEGATIVE (NEGATIVE); URINE BLOOD 1+ (NEGATIVE); URINE COLOR Yellow (YELLOW); URINE GLUCOSE (UA) NORMAL (Normal); URINE KETONE TRACE mg/dL (NEGATIVE); URINE LEUKOCYTE ESTERASE TRACE Leu/uL (Negative); URINE PROTEIN 1+ mg/dL (NEGATIVE); URINE UROBILINOGEN NORMAL mg/dL (0.2-1.0); WBC URINE 2 /hpf (0-5)
--- NOTE | 2016-07-04 15:30 | MRI ---
PROCEDURE: MRI BRAIN WITHOUT CONTRAST HISTORY: AMS COMPARISON: None. TECHNIQUE: Multiplanar, multisequence MR images of the brain were obtained without intravenous contrast enhancement. FINDINGS: HEMORRHAGE: None DWI: No evidence of an acute or early subacute infarction. BRAIN PARENCHYMA: No mass effect or edema. No atrophy or chronic microvascular ischemic changes. VENTRICLES: Unremarkable. No hydrocephalus. CRANIUM: Unremarkable. ORBITS: Grossly unremarkable. PARANASAL SINUSES/MASTOIDS: Minimal left mastoid air cell opacification. VASCULAR SYSTEM: Skull base flow voids intact. OTHER FINDINGS: None. IMPRESSION: Minimal left mastoid air cell opacification.
[2016-07-04] MEDS ORDERED: Benzocaine/Menthol (Cepacol) Lozenge MT PRN (17:12)
[2016-07-04] MEDS: Bisacodyl 5mg EC Tab PO SCH (21:56)
[2016-07-04] MEDS ORDERED: traZODone 25 mg Tab PO ONE ×2 (22:00→23:50)
[2016-07-05] MEDS: Albuterol-Ipratrop 3 mg / 0.5 (3 ml) UD INH SCH ×4 (01:17→20:45)
[2016-07-05] MEDS: metroNIDAZOLE IV 500 mg/100 ml 100 ML IVPB SCH ×3 (05:17→22:44)
[2016-07-05 07:14] LABS: BASO % 0.7 % (0.0-2.0); EOS # 0.1 K/uL (0.0-0.7); EOS % 2.4 % (0.0-4.0); HEMATOCRIT 31.4 % (35.0-51.0); LYMPH # 0.5 K/uL (1.0-4.3); LYMPH % 9.4 % (20.0-40.0); MEAN CELL VOLUME 99.4 fL (80.0-94.0); MEAN CORPUSCULAR HEMOGLOBIN 32.6 pg (27.0-31.0); MEAN CORPUSCULAR HGB CONC 32.8 g/dL (33.0-37.0); MEAN PLATELET VOLUME 9.2 fL (7.2-11.7); MONO # 0.6 K/uL (0.0-0.8); MONO % 10.9 % (0.0-10.0); PLATELET COUNT 292 K/uL (130-400); RED CELL DISTRIBUTION WIDTH 14.4 % (11.5-14.5); WHITE BLOOD COUNT 5.6 K/uL (4.8-10.8)
[2016-07-05 07:33] LABS: BILIRUBIN,TOTAL 0.8 mg/dL (0.2-1.3); TOTAL PROTEIN 5.8 g/dL (6.3-8.3)
[2016-07-05 07:34] LABS: CALCIUM 7.8 mg/dl (8.6-10.4)
[2016-07-05 07:35] LABS: ALB/GLOB RATIO 0.9 (1.0-2.1)
[2016-07-05] MEDS: (Novolog) Insulin Aspart, Recombinant 100 u/ml 10 ml vial SC SCH ×4 (08:16→21:47)
[2016-07-05 09:55] LABS: EOSINOPHIL 6 % (0-4); NEUTROPHIL 70 % (50-75); TOTAL CELLS COUNTED 100
[2016-07-05 09:56] LABS: LARGE PLATELETS PRESENT
[2016-07-05 09:57] LABS: GIANT PLATELETS PRESENT
--- NOTE | 2016-07-05 11:23 | CP.PCM.PN ---
<Yajaira Baker - Last Filed: 07/05/16 11:35> Subjective - Date & Time of Evaluation Date of Evaluation: 07/05/16 Time of Evaluation: 07:15 - Subjective Subjective: Internal medicine progress note for Dr. Moreno-Yajaira Baker, PGY-1 Pt S & E at bedside. Per son at bedside- pt slept almost all day yesterday, cough has become productive, pt had fevers all day, didn't eat much, still seems very weak. Pt resting comfortably in bed at time of evaluation. Awake, alert, answering questions. Continues with confusion as to where he is and what year it is. Objective - Vital Signs/Intake and Output Vital Signs (last 24 hours): Temp Pulse Resp BP Pulse Ox 100.4 F H 93 H 22 157/81 H 98 07/05/16 08:00 07/05/16 08:00 07/05/16 08:00 07/05/16 08:00 07/05/16 08:00 Intake and Output: 07/05/16 07/05/16 06:59 18:59 Intake Total 745 Balance 745 - Medications Medications: Current Medications Acetaminophen (Tylenol 325mg Tab) 650 mg PO Q6 PRN PRN Reason: Fever >100.4 F Last Admin: 07/05/16 00:47 Dose: 650 mg Albuterol/Ipratropium (Duoneb 3 Mg/0.5 Mg (3 Ml) Ud) 3 ml INH RQ6 [facility] Last Admin: 07/05/16 08:04 Dose: 3 ml Aspirin (Ecotrin) 81 mg PO DAILY [facility] Last Admin: 07/04/16 10:54 Dose: 81 mg Benzocaine/Menthol (Cepacol Sore Throat) 1 chris MT Q2H PRN PRN Reason: Sore Throat Bisacodyl (Dulcolax) 10 mg PO HS [facility] Last Admin: 07/04/16 21:56 Dose: 10 mg Famotidine (Pepcid) 20 mg PO DAILY [facility] Last Admin: 07/04/16 10:54 Dose: 20 mg Guaifenesin (Mucinex La) 600 mg PO BID [facility] Ciprofloxacin (Cipro 400mg/200ml Dsw) 200 mls @ 133 mls/hr IVPB DAILY [facility] Stop: 07/07/16 11:46 Last Admin: 07/04/16 10:52 Dose: 133 mls/hr Metronidazole (Flagyl) 100 mls @ 100 mls/hr IVPB Q8 [facility] Stop: 07/07/16 14:01 Last Admin: 07/05/16 05:17 Dose: 100 mls/hr Sodium Chloride (Sodium Chloride 0.9%) 1,000 mls @ 50 mls/hr IV .Q20H [facility] Insulin Aspart (Novolog) 0 unit SC ACHS [facility] PRN Reason: Protocol Last Admin: 07/05/16 08:16 Dose: Not Given Lisinopril (Zestril) 10 mg PO DAILY [facility] Last Admin: 07/04/16 10:53 Dose: 10 mg Metoprolol Succinate (Toprol Xl) 50 mg PO DAILY [facility] Last Admin: 07/04/16 10:53 Dose: 50 mg Promethazine HCl/Codeine (Phenergan/Codeine Oral Syrup) 5 ml PO Q4 PRN PRN Reason: Cough Last Admin: 07/04/16 21:56 Dose: 5 ml Rosuvastatin Calcium (Crestor) 5 mg PO HS [facility] Last Admin: 07/04/16 21:56 Dose: 5 mg Saccharomyces Boulardii (Florastor) 250 mg PO Q12 [facility] Last Admin: 07/04/16 21:57 Dose: 250 mg - Labs Labs: 07/05/16 07:02 07/05/16 07:02 - Constitutional Appears: Non-toxic, No Acute Distress - Head Exam Head Exam: ATRAUMATIC, NORMAL INSPECTION, NORMOCEPHALIC - Eye Exam Eye Exam: EOMI, Normal appearance, PERRL Pupil Exam: NORMAL ACCOMODATION, PERRL - ENT Exam ENT Exam: Mucous Membranes Moist, Normal Exam - Neck Exam Neck Exam: Full ROM, Normal Inspection - Respiratory Exam Respiratory Exam: Rhonchi, Wheezes, NORMAL BREATHING PATTERN. absent: Accessory Muscle Use, Decreased Breath Sounds, Clear to Ausculation Bilateral, Rales, Respiratory Distress - Cardiovascular Exam Cardiovascular Exam: REGULAR RHYTHM, +S1, +S2 - GI/Abdominal Exam GI & Abdominal Exam: Soft, Normal Bowel Sounds. absent: Distended, Tenderness - Extremities Exam Extremities Exam: Normal Inspection. absent: Pedal Edema - Neurological Exam Neurological Exam: Alert, Awake. absent: Oriented x3 (AOx 1) - Psychiatric Exam Psychiatric exam: Normal Affect, Normal Mood - Skin Skin Exam: Diaphoretic, Intact, Normal Color, Warm Assessment and Plan - Assessment and Plan (Free Text) Assessment: Fever of unknown origin WBC 5.6 Febrile overnight last 24H, Tmax 102.3 CXR- 07/02/16- Poor inspiration with low lung volumes and mild crowded bronchovascular markings. Suspect mild bibasilar atelectasis left greater than right. Rapid flu neg CXR- 07/03/16- PA / Lat- Somewhat limited due to partial obscuration of the medial lung apices by overlying facial soft tissue and mandible artifact. Poor inspiration with llow lung volumes, mild crowded bronchovascular markings and mild bibasilar atelectasis U/A neg Blood cx- neg x 3D Urine Cx- no growth Tylenol PRN Procalcitonin elevated at 0.5 Cont Cipro 400mg Q12h Cont Flagyl 500mg Q8h FU CT chest- report pending Repeat U/A neg for nitrates or leuk esterase FU sputum cxr FU bladder scan Throat lozenges for sore throat FU HIV FU UDS FU Echo FU ERSR FU Lyme FU RPR FU JAIME FU V/Q scan FU Doppler U/S of LE and UE FU C diff Will consider ID consult 07/06 if indicated Monitor Intermittent AMS Possible delirium due to fever of unknown origin CT brain w/findings of No acute intracranial hemorrhage. Mild -moderate chronic white matter ischemic changes as above. There also appear to be a few scattered chronic bilateral basal nuclei lacunar type infarcts. Moderate generalized volume loss MRI brain w/findings of Minimal left mastoid air cell opacification. Will continue to monitor and evaluate. Acute Renal Insufficiency BUN/Cr 24/1.9- improving NS@50 Monito DM ISS Accuchecks A1c 7.9 Diabetic diet Re-inforced need to be compliant with diabetic medications to pt HTN Cont home med: Asa 81mg PO Daily, Lisinopril 10mg PO Daily, Toprol XL 50mg PO Daily [facility] Cont home med: Crestor 5mg PO HS Constipation Cont home med: Dulcolax 10mg PO HS GI/DVT ppx SCDs Pepcid 20mg PO BID Heparin 5000U SC Q12h DW attending <Kristopher Moreno - Last Filed: 07/05/16 14:50> Objective - Vital Signs/Intake and Output Vital Signs (last 24 hours): Temp Pulse Resp BP Pulse Ox 102 F H 93 H 22 157/81 H 98 07/05/16 12:36 07/05/16 08:00 07/05/16 08:00 07/05/16 08:00 07/05/16 08:00 Intake and Output: 07/05/16 07/05/16 06:59 18:59 Intake Total 745 Balance 745 - Medications Medications: Current Medications Acetaminophen (Tylenol 325mg Tab) 650 mg PO Q6 PRN PRN Reason: Fever >100.4 F Last Admin: 07/05/16 12:36 Dose: 650 mg Albuterol/Ipratropium (Duoneb 3 Mg/0.5 Mg (3 Ml) Ud) 3 ml INH RQ6 [facility] Last Admin: 07/05/16 13:26 Dose: Not Given Aspirin (Ecotrin) 81 mg PO DAILY [facility] Last Admin: 07/05/16 12:36 Dose: 81 mg Benzocaine/Menthol (Cepacol Sore Throat) 1 chris MT Q2H PRN PRN Reason: Sore Throat Bisacodyl (Dulcolax) 10 mg PO HS [facility] Last Admin: 07/04/16 21:56 Dose: 10 mg Famotidine (Pepcid) 20 mg PO DAILY [facility] Last Admin: 07/05/16 12:48 Dose: 20 mg Guaifenesin (Mucinex La) 600 mg PO BID [facility] Last Admin: 07/05/16 12:36 Dose: 600 mg Ciprofloxacin (Cipro 400mg/200ml Dsw) 200 mls @ 133 mls/hr IVPB DAILY [facility] Stop: 07/07/16 11:46 Last Admin: 07/05/16 12:40 Dose: 133 mls/hr Metronidazole (Flagyl) 100 mls @ 100 mls/hr IVPB Q8 [facility] Stop: 07/07/16 14:01 Last Admin: 07/05/16 05:17 Dose: 100 mls/hr Sodium Chloride (Sodium Chloride 0.9%) 1,000 mls @ 50 mls/hr IV .Q20H [facility] Last Admin: 07/05/16 12:45 Dose: Not Given Insulin Aspart (Novolog) 0 unit SC ACHS [facility] PRN Reason: Protocol Last Admin: 07/05/16 12:53 Dose: 1 unit Lisinopril (Zestril) 10 mg PO DAILY [facility] Last Admin: 07/05/16 12:36 Dose: 10 mg Metoprolol Succinate (Toprol Xl) 50 mg PO DAILY [facility] Last Admin: 07/05/16 12:42 Dose: 50 mg Promethazine HCl/Codeine (Phenergan/Codeine Oral Syrup) 5 ml PO Q4 PRN PRN Reason: Cough Last Admin: 07/04/16 21:56 Dose: 5 ml Rosuvastatin Calcium (Crestor) 5 mg PO HS [facility] Last Admin: 07/04/16 21:56 Dose: 5 mg Saccharomyces Boulardii (Florastor) 250 mg PO Q12 [facility] Last Admin: 07/05/16 12:37 Dose: 250 mg - Labs Labs: 07/05/16 07:02 07/05/16 07:02 Attending/Attestation - Attestation I have personally seen and examined this patient.: Yes I have fully participated in the care of the patient.: Yes I have reviewed all pertinent clinical information, including history, physical exam and plan: Yes Notes (Text): 07/05/16 14:47 Medical attending: Patient was seen and examined by me, agrees the above note by medical insurance clerk. Patient's family member was present as well. We discussed what has been going on so far He had a CT scan of the chest ordered yesterday due to persistent coughing the patient was having. It did not show any infiltrates, there was tiny amounts of pleural effusion. Overnight the patient was still having persistently high fevers the white blood cell count is still low. Microbiology continues to be negative as well. At this time he's been started on IV antibodies. Because of his changes in mental status an MRI of the brain was performed to see if he could've had a stroke however this was negative for any acute findings. We'll check a 2-D echo to assess for potential endocarditis if that could be causing elevated temperatures. He could also potentially have a pulmonary embolism, were to try to order a VQ scan to assess if this is possible. Thank you very much, Kristopher Moreno
--- NOTE | 2016-07-05 11:28 | CT ---
CT scan chest dated 07/04/2016. History: Cough. Contiguous helical/transaxial sections of the chest performed in standard fashion without intravenous contrast material. Additional 2 dimensional sagittal and coronal reformats provided. Correlation made with chest radiograph 07/03/2016. Radiation dose. Total DLP = 291.14 mGy - cm. Findings: Sternotomy wires are present and status post CABG surgery. . Coronary artery calcifications. Status post CABG surgery. Heart is mildly enlarged. Ascending thoracic aorta measures approximately 3.4 cm and descending thoracic aorta measures approximately 2.7 cm. Three-vessel arch. Pulmonary trunk measures approximately 3.15 cm. Few tiny nonspecific mediastinal lymph nodes are present. Evaluation for hilar adenopathy is limited due to the lack of circulating intravenous contrast material. Central airways are midline and patent. No obvious endobronchial lesions are identified. Thyroid gland appears unremarkable. Visualized upper abdominal structures appear unremarkable. Some minimal nonspecific infiltration seen within the perinephric fat bilaterally. The gallbladder is appears contracted likely due to nonfasting state however clinical correlation recommended. Central pulmonary vasculature appears slightly increased/congested. Evaluation of the lung parenchyma reveals tiny bilateral effusions left greater than right. There may be either small amount of fluid tract in the right major fissure versus pleural thickening. Bibasilar atelectasis and or scarring also felt be present. . Minor scarring changes also seen in both lung apices No evidence of pneumothorax. Mild multilevel degenerative spondylosis of the thoracic spine. Impression: Small bilateral effusions and mild atelectasis/scarring changes both lung irving as detailed above. The central pulmonary vasculature also appears slightly increased/congested. Mild cardiomegaly.
[2016-07-05] MEDS: guaiFENesin 600 mg ER Tab PO SCH ×2 (12:36→17:20)
[2016-07-05] MEDS: Saccharomyces Boulardi 250 mg Cap PO SCH ×2 (12:37→22:44)
[2016-07-05] MEDS: Ciprofloxacin 400mg/200ml D5W 200 ML IVPB SCH (12:40)
[2016-07-05] MEDS: Metoprolol Succinate 50 mg XL Tab PO SCH (12:42)
[2016-07-05] MEDS: Sodium Chloride 0.9% 1,000 ML IV SCH ×2 (12:45→21:47)
--- NOTE | 2016-07-05 15:08 | VASCLAB ---
PROCEDURE: Lower Extremity Venous Duplex Exam. HISTORY: Fevers unknown origin PRIORS: None. TECHNIQUE: Bilateral common femoral, femoral, popliteal and posterior tibial, peroneal and great saphenous veins were evaluated. Flow was assessed with color Doppler, compressibility, assessment of phasic flow and augmentation response. Report prepared by Chris Shore, VICKIE, RVT FINDINGS: RIGHT: 1. Common Femoral Vein: 1.1. Compressibility - Fully compressible: Thrombus - None : Flow - Phasic: Augmentation -Normal: Reflux - None. 2. Femoral Vein: 2.1. Compressibility - Fully compressible: Thrombus - None : Flow - Phasic: Augmentation -Normal: Reflux - None. 3. Popliteal Vein: 3.1. Compressibility - Fully compressible: Thrombus - None : Flow - Phasic: Augmentation -Normal: Reflux - None. 4. Posterior Tibial Vein: 4.1. Compressibility - Fully compressible: Thrombus - None: Flow - Phasic: Augmentation -Normal: Reflux - None. 5. Peroneal Vein: 5.1. Compressibility - Fully compressible: Thrombus - None: Flow - Phasic: Augmentation -Normal: Reflux - None. 6. Great Saphenous Vein: 6.1. Compressibility - Fully compressible: Thrombus - None: Flow - Phasic: Augmentation - Normal: Reflux - None. LEFT: 1. Common Femoral Vein: 1.1. Compressibility - Fully compressible: Thrombus - None: Flow - Phasic: Augmentation -Normal: Reflux - None. 2. Femoral Vein: 2.1. Compressibility - Fully compressible: Thrombus - None: Flow - Phasic: Augmentation -Normal: Reflux - None. 3. Popliteal Vein: 3.1. Compressibility - Fully compressible: Thrombus - None : Flow - Phasic: Augmentation -Normal: Reflux - None. 4. Posterior Tibial Vein: 4.1. Compressibility - Fully compressible: Thrombus - None: Flow - Phasic: Augmentation -Normal: Reflux - None. 5. Peroneal Vein: 5.1. Compressibility - Fully compressible: Thrombus - None: Flow - Phasic: Augmentation -Normal: Reflux - None. 6. Great Saphenous Vein: 6.1. Compressibility - Fully compressible: Thrombus - None: Flow - Phasic: Augmentation - Normal: Reflux - None. OTHER FINDINGS: Right: None significant. Left: None significant. IMPRESSION: Right: No evidence of deep or superficial vein thrombosis of the right lower extremity. Normal valve function noted of the right side. Left: No evidence of deep or superficial vein thrombosis of the left lower extremity. Normal valve function noted of the left side.
--- NOTE | 2016-07-05 15:08 | VASCLAB ---
PROCEDURE: Upper Extremity Venous Duplex Exam HISTORY: Fevers unknown origin PRIORS: None. TECHNIQUE: Bilateral upper extremity, internal jugular, subclavian, axillary, brachial, ulnar, radial, basilic and upper cephalic veins were evaluated. Flow was assessed with color Doppler, compressibility, assessment of phasic flow and augmentation response. Report prepared by VICKIE Langley, RVT FINDINGS: RIGHT: 1. Internal Jugular: 1.1. Compressibility - Fully compressible: Thrombus - None : Flow - Phasic: Augmentation -Normal: Reflux - None. 2. Subclavian: 2.1. Compressibility - Fully compressible: Thrombus - None : Flow - Phasic: Augmentation -Normal: Reflux - None. 3. Axillary: 3.1. Compressibility - Fully compressible: Thrombus - None : Flow - Phasic: Augmentation -Normal: Reflux - None. 4. Brachial: 4.1. Compressibility - Fully compressible: Thrombus - None: Flow - Phasic: Augmentation -Normal: Reflux - None. 5. Ulnar: 5.1. Compressibility - Fully compressible: Thrombus - None: Flow - Phasic: Augmentation -Normal: Reflux - None. 6. Radial: 6.1. Compressibility - Fully compressible: Thrombus - None: Flow - Phasic: Augmentation - Normal: Reflux - None. 7. Cephalic: 7.1. Compressibility - Fully compressible: Thrombus - None: Flow - Phasic: Augmentation -Normal: Reflux - None. 8. Basilic: 8.1. Compressibility - Fully compressible: Thrombus - None: Flow - Phasic: Augmentation -Normal: Reflux - None. LEFT: 1. Internal Jugular: 1.1. Compressibility - Fully compressible: Thrombus - None : Flow - Phasic: Augmentation -Normal: Reflux - None. 2. Subclavian: 2.1. Compressibility - Fully compressible: Thrombus - None : Flow - Phasic: Augmentation -Normal: Reflux - None. 3. Axillary: 3.1. Compressibility - Fully compressible: Thrombus - None : Flow - Phasic: Augmentation -Normal: Reflux - None. 4. Brachial: 4.1. Compressibility - Fully compressible: Thrombus - None: Flow - Phasic: Augmentation -Normal: Reflux - None. 5. Ulnar: 5.1. Compressibility - Fully compressible: Thrombus - None: Flow - Phasic: Augmentation -Normal: Reflux - None. 6. Radial: 6.1. Compressibility - Fully compressible: Thrombus - None: Flow - Phasic: Augmentation - Normal: Reflux - None. 7. Cephalic: 7.1. Compressibility - Fully compressible: Thrombus - None: Flow - Phasic: Augmentation -Normal: Reflux - None. 8. Basilic: 8.1. Compressibility - Fully compressible: Thrombus - None: Flow - Phasic: Augmentation -Normal: Reflux - None. OTHER FINDINGS: Right: None. Left: None. IMPRESSION: Right: No evidence of vein thrombosis of the right upper extremity with excellent venous flow. Normal valve function noted of the right side. Left: No evidence of vein thrombosis of the left upper extremity with excellent venous flow. Normal valve function noted of the left side.
--- NOTE | 2016-07-05 17:13 | NM ---
COMPARISON: July 03, 2016 single-view chest July 04, 2016. CT thorax TECHNIQUE: 8.2 mCi technetium 99-m Xe-133 Gas. 3.4 mCI technetium 99-m MAA administered intravenously. FINDINGS: VENTILATION COMPONENT: Heterogeneous ventilation PERFUSION COMPONENT: Heterogeneous distribution of radionuclide. No geographic, segmental, lobar abnormalities apparent on the present examination. IMPRESSION: Low probability ventilation perfusion scan for pulmonary embolism.
--- NOTE | 2016-07-05 19:33 | CARD ---
APPROVED REPORT EXAM: Two-dimensional and M-mode echocardiogram with Doppler and color Doppler. Other Information Quality : GoodRhythm : INDICATION RENAL FAILURE,HX OF [place] Surgery/Intervention CABG: RISK FACTORS Hypertension Hyperlipidemia Diabetes M-Mode DIMENSIONS RVDd2.28 (2.1-3.2cm)Left Atrium (MM)3.38 (2.5-4.0cm) IVSd0.55 (0.7-1.1cm)Aortic Root2.93 (2.2-3.7cm) LVDd5.04 (4.0-5.6cm)Aortic Cusp Exc.1.95 (1.5-2.0cm) PWd0.78 (0.7-1.1cm)FS (%) 29 % LVDs3.58 (2.0-3.8cm)LVEF (%)56 (>50%) Mitral Valve MV E Qsvugekx684.1cm/sMV A Lokvgcpv156.7cm/sE/A ratio1.1 TDI E/Lateral E'0.0E/Medial E'0.0 Tricuspid Valve TR Peak [id number]/sTR Peak Gr.[id number] LEFT VENTRICLE The left ventricle is normal size. There is normal left ventricular wall thickness. The left ventricular systolic function is normal. The left ventricular ejection fraction is within the normal range. There is mild hypokinesis in the apical septal wall. The left ventricular diastolic function is normal. RIGHT VENTRICLE The right ventricle is normal size. The right ventricular systolic function is normal. ATRIA The left atrium size is normal. The right atrium size is normal. AORTIC VALVE The aortic valve is normal in structure. No aortic regurgitation is present. MITRAL VALVE The mitral valve is normal in structure. Mitral regurgitation is trace. TRICUSPID VALVE The tricuspid valve is normal in structure. There is trace tricuspid regurgitation. PULMONIC VALVE There is mild pulmonic valvular regurgitation. GREAT VESSELS The aortic root displays mild sclerocalcific changes. The IVC is normal in size and collapses >50% with inspiration. PERICARDIAL EFFUSION There is no pericardial effusion. <Conclusion> The left ventricular systolic function is normal. There is mild hypokinesis in the apical septal wall. The right ventricular systolic function is normal. No significant valvular abnormality. The aortic root displays mild sclerocalcific changes. There is no pericardial effusion.
[2016-07-05] MEDS: Bisacodyl 5mg EC Tab PO SCH (21:48)
[2016-07-06] MEDS: Albuterol-Ipratrop 3 mg / 0.5 (3 ml) UD INH SCH ×3 (01:18→13:37)
[2016-07-06] MEDS: Promethazine/Cod 6.25mg-10mg/5ml Syr UD PO PRN (03:10)
[2016-07-06] MEDS: metroNIDAZOLE IV 500 mg/100 ml 100 ML IVPB SCH ×2 (05:12→13:48)
--- NOTE | 2016-07-06 06:21 | CP.PCM.PN ---
Addendum entered and electronically signed by Yajaira Baker DO 07/06/16 14:09: Ordered CT abdomen, Haptoglobin, LDH. Original Note: <Yajaira Baker - Last Filed: 07/06/16 13:51> Subjective - Date & Time of Evaluation Date of Evaluation: 07/06/16 Time of Evaluation: 09:15 - Subjective Subjective: Internal medicine progress note for Dr. Moreno- Yajaira Baker, PGY-1 Pt S & E at bedside. Per pt's son at bedside- pt was more awake yesterday, ate better, still having fevers, had visitors yesterday, was sitting up in bed, walked the halls with assistance, and cough improved - less sputum produced. Pt was resting comfortably in bed during evaluation- still only AOx1. Objective - Vital Signs/Intake and Output Vital Signs (last 24 hours): Temp Pulse Resp BP Pulse Ox 102 F H 85 20 131/71 96 07/06/16 05:24 07/06/16 00:17 07/06/16 00:17 07/06/16 00:17 07/06/16 00:17 Intake and Output: 07/05/16 07/06/16 18:59 06:59 Intake Total 1145 Output Total 400 Balance 745 - Medications Medications: Current Medications Acetaminophen (Tylenol 325mg Tab) 650 mg PO Q6 PRN PRN Reason: Fever >100.4 F Last Admin: 07/06/16 05:24 Dose: 650 mg Albuterol/Ipratropium (Duoneb 3 Mg/0.5 Mg (3 Ml) Ud) 3 ml INH RQ6 [facility] Last Admin: 07/06/16 01:18 Dose: 3 ml Aspirin (Ecotrin) 81 mg PO DAILY [facility] Last Admin: 07/05/16 12:36 Dose: 81 mg Benzocaine/Menthol (Cepacol Sore Throat) 1 chris MT Q2H PRN PRN Reason: Sore Throat Bisacodyl (Dulcolax) 10 mg PO HS [facility] Last Admin: 07/05/16 21:48 Dose: 10 mg Famotidine (Pepcid) 20 mg PO DAILY [facility] Last Admin: 07/05/16 12:48 Dose: 20 mg Guaifenesin (Mucinex La) 600 mg PO BID [facility] Last Admin: 07/05/16 17:20 Dose: 600 mg Ciprofloxacin (Cipro 400mg/200ml Dsw) 200 mls @ 133 mls/hr IVPB DAILY [facility] Stop: 07/07/16 11:46 Last Admin: 07/05/16 12:40 Dose: 133 mls/hr Metronidazole (Flagyl) 100 mls @ 100 mls/hr IVPB Q8 [facility] Stop: 07/07/16 14:01 Last Admin: 07/06/16 05:12 Dose: 100 mls/hr Sodium Chloride (Sodium Chloride 0.9%) 1,000 mls @ 50 mls/hr IV .Q20H [facility] Last Admin: 07/05/16 21:47 Dose: 50 mls/hr Insulin Aspart (Novolog) 0 unit SC ACHS [facility] PRN Reason: Protocol Last Admin: 07/05/16 21:47 Dose: Not Given Lisinopril (Zestril) 10 mg PO DAILY [facility] Last Admin: 07/05/16 12:36 Dose: 10 mg Metoprolol Succinate (Toprol Xl) 50 mg PO DAILY [facility] Last Admin: 07/05/16 12:42 Dose: 50 mg Promethazine HCl/Codeine (Phenergan/Codeine Oral Syrup) 5 ml PO Q4 PRN PRN Reason: Cough Last Admin: 07/06/16 03:10 Dose: 5 ml Rosuvastatin Calcium (Crestor) 5 mg PO HS [facility] Last Admin: 07/05/16 21:48 Dose: 5 mg Saccharomyces Boulardii (Florastor) 250 mg PO Q12 [facility] Last Admin: 07/05/16 22:44 Dose: 250 mg - Labs Labs: 07/05/16 07:02 07/05/16 07:02 - Constitutional Appears: Non-toxic, No Acute Distress - Head Exam Head Exam: ATRAUMATIC, NORMAL INSPECTION, NORMOCEPHALIC - Eye Exam Eye Exam: EOMI, Normal appearance, PERRL Pupil Exam: NORMAL ACCOMODATION, PERRL - ENT Exam ENT Exam: Mucous Membranes Moist, Normal Exam - Neck Exam Neck Exam: Full ROM, Normal Inspection - Respiratory Exam Respiratory Exam: Clear to Ausculation Bilateral, NORMAL BREATHING PATTERN. absent: Rales, Rhonchi, Wheezes, Respiratory Distress, Stridor - Cardiovascular Exam Cardiovascular Exam: REGULAR RHYTHM, +S1, +S2 - GI/Abdominal Exam GI & Abdominal Exam: Soft, Normal Bowel Sounds. absent: Tenderness - Neurological Exam Neurological Exam: Alert, Awake. absent: Oriented x3 - Psychiatric Exam Psychiatric exam: Normal Affect, Normal Mood - Skin Skin Exam: Diaphoretic, Intact, Normal Color, Warm Assessment and Plan - Assessment and Plan (Free Text) Assessment: Fever of unknown origin WBC 4.8 from 5.6 Febrile overnight last 24H, Tmax 102 Tylenol PRN Cont Cipro 400mg Q12h Cont Flagyl 500mg Q8h Throat lozenges for sore throat CXR- 07/02/16- Poor inspiration with low lung volumes and mild crowded bronchovascular markings. Suspect mild bibasilar atelectasis left greater than right. Rapid flu neg CXR- 07/03/16- PA / Lat- Somewhat limited due to partial obscuration of the medial lung apices by overlying facial soft tissue and mandible artifact. Poor inspiration with llow lung volumes, mild crowded bronchovascular markings and mild bibasilar atelectasis U/A neg Blood cx- neg x 3D Urine Cx- no growth Procalcitonin elevated at 0.5 CT chest- Small bilateral effusions and mild atelectasis/scarring changes both lung irving as detailed above. The central pulmonary vasculature also appears slightly increased/congested. Mild cardiomegaly. Repeat U/A neg for nitrates or leuk esterase Bladder scan- PVR 53cc HIV neg Legionella neg Grp A strp neg Throat cxr neg JAIME neg Flu neg Mycoplasma neg UDS pos for opiates Echo w/EF >50%, mild hypokinesis of apical septal wall, no other abnormalities RPR neg V/Q scan- Low probability ventilation perfusion scan for pulmonary embolism. Doppler U/S of LE neg Doppler U/S of UE - neg ESR 30 FU Lyme FU sputum cxr FU C diff ID consulted Monitor Intermittent AMS Possible delirium due to fever of unknown origin CT brain w/findings of No acute intracranial hemorrhage. Mild -moderate chronic white matter ischemic changes as above. There also appear to be a few scattered chronic bilateral basal nuclei lacunar type infarcts. Moderate generalized volume loss MRI brain w/findings of Minimal left mastoid air cell opacification. Will continue to monitor and evaluate. Acute Renal Insufficiency BUN/Cr 25/1.7- improving slightly NS@50 Monito DM ISS Accuchecks A1c 7.9 Diabetic diet Re-inforced need to be compliant with diabetic medications to pt HTN Cont home med: Asa 81mg PO Daily, Lisinopril 10mg PO Daily, Toprol XL 50mg PO Daily HLD Cont home med: Crestor 5mg PO HS Constipation Cont home med: Dulcolax 10mg PO HS GI/DVT ppx SCDs Pepcid 20mg PO BID Heparin 5000U SC Q12h DW attending <Kristopher Moreno - Last Filed: 07/06/16 15:31> Objective - Vital Signs/Intake and Output Vital Signs (last 24 hours): Temp Pulse Resp BP Pulse Ox 99.0 F 78 20 133/75 99 07/06/16 07:15 07/06/16 07:15 07/06/16 07:15 07/06/16 07:15 07/06/16 07:15 Intake and Output: 07/06/16 07/06/16 06:59 18:59 Intake Total 650 Output Total 350 Balance 300 - Medications Medications: Current Medications Acetaminophen (Tylenol 325mg Tab) 650 mg PO Q6 PRN PRN Reason: Fever >100.4 F Last Admin: 07/06/16 05:24 Dose: 650 mg Albuterol/Ipratropium (Duoneb 3 Mg/0.5 Mg (3 Ml) Ud) 3 ml INH RQ6 [facility] Last Admin: 07/06/16 13:37 Dose: 3 ml Aspirin (Ecotrin) 81 mg PO DAILY [facility] Last Admin: 07/06/16 10:53 Dose: 81 mg Benzocaine/Menthol (Cepacol Sore Throat) 1 chris MT Q2H PRN PRN Reason: Sore Throat Bisacodyl (Dulcolax) 10 mg PO HS [facility] Last Admin: 07/05/16 21:48 Dose: 10 mg Famotidine (Pepcid) 20 mg PO DAILY [facility] Last Admin: 07/06/16 10:53 Dose: 20 mg Guaifenesin (Mucinex La) 600 mg PO BID [facility] Last Admin: 07/06/16 10:53 Dose: 600 mg Ciprofloxacin (Cipro 400mg/200ml Dsw) 200 mls @ 133 mls/hr IVPB DAILY [facility] Stop: 07/07/16 11:46 Last Admin: 07/06/16 10:54 Dose: 133 mls/hr Metronidazole (Flagyl) 100 mls @ 100 mls/hr IVPB Q8 [facility] Stop: 07/07/16 14:01 Last Admin: 07/06/16 13:48 Dose: 100 mls/hr Sodium Chloride (Sodium Chloride 0.9%) 1,000 mls @ 50 mls/hr IV .Q20H [facility] Last Admin: 07/06/16 08:19 Dose: Not Given Insulin Aspart (Novolog) 0 unit SC ACHS [facility] PRN Reason: Protocol Last Admin: 07/06/16 12:34 Dose: 1 unit Lisinopril (Zestril) 10 mg PO DAILY [facility] Last Admin: 07/06/16 10:53 Dose: 10 mg Metoprolol Succinate (Toprol Xl) 50 mg PO DAILY [facility] Last Admin: 07/06/16 11:28 Dose: 50 mg Promethazine HCl/Codeine (Phenergan/Codeine Oral Syrup) 5 ml PO Q4 PRN PRN Reason: Cough Last Admin: 07/06/16 03:10 Dose: 5 ml Rosuvastatin Calcium (Crestor) 5 mg PO HS [facility] Last Admin: 07/05/16 21:48 Dose: 5 mg Saccharomyces Boulardii (Florastor) 250 mg PO Q12 [facility] Last Admin: 07/06/16 10:53 Dose: 250 mg - Labs Labs: 07/06/16 06:30 07/06/16 06:30 Attending/Attestation - Attestation I have personally seen and examined this patient.: Yes I have fully participated in the care of the patient.: Yes I have reviewed all pertinent clinical information, including history, physical exam and plan: Yes Notes (Text): Medical attending: Patient was seen and examined by me. Agree with the above note by the resident. The patient still had a fever. WBC is stable, JAIME is negative, echo was negative , V/Q scan was negative as well HIV and also repeat cultures. MRI of the brain and CT of the chest were negative for acute findings as well. Will consult ID Also check CT of the abdomen and pelvis - thought I need to point out he does not have abdominal pain. Patient remains on IV abx at this time thank you Kristopher Moreno
[2016-07-06 07:07] LABS: EOS # 0.1 K/uL (0.0-0.7); EOS % 2.3 % (0.0-4.0); LYMPH # 0.6 K/uL (1.0-4.3); LYMPH % 12.1 % (20.0-40.0); MEAN CELL VOLUME 98.5 fL (80.0-94.0); MEAN CORPUSCULAR HGB CONC 33.5 g/dL (33.0-37.0); MEAN PLATELET VOLUME 8.8 fL (7.2-11.7); MONO # 0.6 K/uL (0.0-0.8); MONO % 11.8 % (0.0-10.0); RED CELL DISTRIBUTION WIDTH 14.1 % (11.5-14.5); WHITE BLOOD COUNT 4.8 K/uL (4.8-10.8)
[2016-07-06 07:12] LABS: POTASSIUM 3.8 mmol/L (3.6-5.2)
[2016-07-06 07:15] LABS: ALB/GLOB RATIO 0.9 (1.0-2.1); BILIRUBIN,TOTAL 0.5 mg/dL (0.2-1.3); TOTAL PROTEIN 5.4 g/dL (6.3-8.3)
[2016-07-06 07:16] LABS: CALCIUM 7.5 mg/dl (8.6-10.4)
[2016-07-06] MEDS: Sodium Chloride 0.9% 1,000 ML IV SCH (08:19)
[2016-07-06] MEDS: (Novolog) Insulin Aspart, Recombinant 100 u/ml 10 ml vial SC SCH ×4 (08:19→21:35)
[2016-07-06 08:24] LABS: LYME DISEASE SCREEN 0.21 (0.00-0.90)
[2016-07-06] MEDS: Saccharomyces Boulardi 250 mg Cap PO SCH ×2 (10:53→21:35)
[2016-07-06] MEDS: guaiFENesin 600 mg ER Tab PO SCH ×2 (10:53→18:27)
[2016-07-06] MEDS: Ciprofloxacin 400mg/200ml D5W 200 ML IVPB SCH (10:54)
[2016-07-06] MEDS: Metoprolol Succinate 50 mg XL Tab PO SCH (11:28)
--- NOTE | 2016-07-06 17:21 | CT ---
PROCEDURE: CT Abdomen and Pelvis without intravenous contrast HISTORY: fever without origin COMPARISON: None. TECHNIQUE: Axial and reformatted coronal and sagittal CT images of the abdomen and pelvis were obtained without IV or oral contrast administration.. Contrast Dose: 0 Radiation dose: Total exam DLP = 394.94 mGy-cm. FINDINGS: LOWER THORAX: There are small bilateral pleural effusion associated with bibasilar small opacities may represent atelectasis. The heart is mildly enlarged. No evidence of pericardial effusion. LIVER: No evidence of acute pathology in the liver. GALLBLADDER AND BILE DUCTS: The gallbladder is contracted. No evidence of acute cholecystitis. PANCREAS: Unremarkable. No gross lesion or ductal dilatation. SPLEEN: Unremarkable. ADRENALS: Unremarkable. No mass. KIDNEYS AND URETERS: Unremarkable. No hydronephrosis. No solid mass. VASCULATURE: Unremarkable. No aortic aneurysm. BOWEL: Unremarkable. No obstruction. No gross mural thickening. Colonic diverticulosis are seen without evidence of diverticulitis. APPENDIX: Unremarkable. Normal appendix. PERITONEUM: Unremarkable. No free fluid. No free air. LYMPH NODES: Unremarkable. No enlarged lymph nodes. BLADDER: Unremarkable. REPRODUCTIVE: Unremarkable. BONES: No acute fracture. OTHER FINDINGS: None. IMPRESSION: No evidence of acute pathology in the abdomen and pelvis this noncontrast study. No evidence of inflammatory changes or fluid collection in the abdomen and pelvis. Small bilateral pleural effusions associated with small opacities at the lung bases.
[2016-07-06] MEDS: Bisacodyl 5mg EC Tab PO SCH (21:34)
[2016-07-07] MEDS: Albuterol-Ipratrop 3 mg / 0.5 (3 ml) UD INH SCH ×4 (01:28→20:08)
[2016-07-07] MEDS: Sodium Chloride 0.9% 1,000 ML IV SCH ×2 (03:20→23:30)
[2016-07-07 07:19] LABS: BASO % 0.7 % (0.0-2.0); EOS # 0.1 K/uL (0.0-0.7); EOS % 2.3 % (0.0-4.0); LYMPH # 0.8 K/uL (1.0-4.3); LYMPH % 13.6 % (20.0-40.0); MEAN CELL VOLUME 98.1 fL (80.0-94.0); MEAN CORPUSCULAR HEMOGLOBIN 32.8 pg (27.0-31.0); MEAN CORPUSCULAR HGB CONC 33.4 g/dL (33.0-37.0); MONO # 0.7 K/uL (0.0-0.8); MONO % 11.7 % (0.0-10.0); PLATELET COUNT 359 K/uL (130-400); RED CELL DISTRIBUTION WIDTH 14.2 % (11.5-14.5)
[2016-07-07 07:48] LABS: POTASSIUM 4.4 mmol/L (3.6-5.2)
[2016-07-07 07:50] LABS: ALB/GLOB RATIO 0.9 (1.0-2.1); BILIRUBIN,TOTAL 0.6 mg/dL (0.2-1.3); TOTAL PROTEIN 5.6 g/dL (6.3-8.3)
[2016-07-07 07:51] LABS: CALCIUM 7.7 mg/dl (8.6-10.4)
[2016-07-07] MEDS: (Novolog) Insulin Aspart, Recombinant 100 u/ml 10 ml vial SC SCH ×4 (08:10→21:52)
[2016-07-07] MEDS: Moxifloxacin IV 400mg/250ml NS 250 ML IVPB SCH (10:20)
[2016-07-07] MEDS: Saccharomyces Boulardi 250 mg Cap PO SCH ×2 (10:34→21:52)
[2016-07-07] MEDS: guaiFENesin 600 mg ER Tab PO SCH ×2 (10:34→18:20)
[2016-07-07] MEDS: Metoprolol Succinate 50 mg XL Tab PO SCH (10:50)
--- NOTE | 2016-07-07 13:17 | CP.PCM.PN ---
<Yajaira Baker - Last Filed: 07/07/16 13:11> Subjective - Date & Time of Evaluation Date of Evaluation: 07/07/16 Time of Evaluation: 10:30 - Subjective Subjective: Internal medicine progress note for Dr. Moreno- Yajaira Baker, PGY-1 Pt S & E at bedside. History as per pt's son at bedside- pt about the same, is conversant and appropriate with visitors, stil a little alerted - only oriented to self/time, not place. Pt refusing to eat dinner, must be convinced to eat. Is ambulating with assistance. Sleeping a lot. Still having fevers overnight. Stable. Objective - Vital Signs/Intake and Output Vital Signs (last 24 hours): Temp Pulse Resp BP Pulse Ox 100.7 F H 82 20 147/81 99 07/07/16 07:37 07/07/16 07:15 07/07/16 07:15 07/07/16 07:15 07/07/16 07:15 Intake and Output: 07/07/16 07/07/16 06:59 18:59 Intake Total 640 Balance 640 - Medications Medications: Current Medications Acetaminophen (Tylenol 325mg Tab) 650 mg PO Q6 PRN PRN Reason: Fever >100.4 F Last Admin: 07/07/16 07:37 Dose: 650 mg Albuterol/Ipratropium (Duoneb 3 Mg/0.5 Mg (3 Ml) Ud) 3 ml INH RQ6 [facility] Last Admin: 07/07/16 09:15 Dose: 3 ml Aspirin (Ecotrin) 81 mg PO DAILY [facility] Last Admin: 07/07/16 10:34 Dose: 81 mg Benzocaine/Menthol (Cepacol Sore Throat) 1 chris MT Q2H PRN PRN Reason: Sore Throat Bisacodyl (Dulcolax) 10 mg PO HS [facility] Last Admin: 07/06/16 21:34 Dose: 10 mg Famotidine (Pepcid) 20 mg PO DAILY [facility] Last Admin: 07/07/16 10:34 Dose: 20 mg Guaifenesin (Mucinex La) 600 mg PO BID [facility] Last Admin: 07/07/16 10:34 Dose: 600 mg Sodium Chloride (Sodium Chloride 0.9%) 1,000 mls @ 50 mls/hr IV .Q20H [facility] Last Admin: 07/07/16 03:20 Dose: 50 mls/hr Moxifloxacin HCl (Avelox Iv 400mg/250ml Ns) 250 mls @ 167 mls/hr IVPB Q24H [facility] Last Admin: 07/07/16 10:20 Dose: 167 mls/hr Insulin Aspart (Novolog) 0 unit SC ACHS [facility] PRN Reason: Protocol Last Admin: 07/07/16 12:29 Dose: 1 unit Lisinopril (Zestril) 10 mg PO DAILY [facility] Last Admin: 07/07/16 10:34 Dose: 10 mg Metoprolol Succinate (Toprol Xl) 50 mg PO DAILY [facility] Last Admin: 07/07/16 10:50 Dose: 50 mg Promethazine HCl/Codeine (Phenergan/Codeine Oral Syrup) 5 ml PO Q4 PRN PRN Reason: Cough Last Admin: 07/06/16 03:10 Dose: 5 ml Rosuvastatin Calcium (Crestor) 5 mg PO HS [facility] Last Admin: 07/06/16 21:44 Dose: 5 mg Saccharomyces Boulardii (Florastor) 250 mg PO Q12 [facility] Last Admin: 07/07/16 10:34 Dose: 250 mg - Labs Labs: 07/07/16 07:01 07/07/16 07:01 - Constitutional Appears: Non-toxic, No Acute Distress - Head Exam Head Exam: ATRAUMATIC, NORMAL INSPECTION, NORMOCEPHALIC - Eye Exam Eye Exam: EOMI, Normal appearance, PERRL Pupil Exam: NORMAL ACCOMODATION, PERRL - ENT Exam ENT Exam: Mucous Membranes Moist, Normal Exam - Neck Exam Neck Exam: Full ROM, Normal Inspection - Respiratory Exam Respiratory Exam: Clear to Ausculation Bilateral, NORMAL BREATHING PATTERN. absent: Accessory Muscle Use, Chest Wall Tenderness, Rales, Rhonchi, Wheezes, Respiratory Distress - Cardiovascular Exam Cardiovascular Exam: REGULAR RHYTHM, +S1, +S2 - GI/Abdominal Exam GI & Abdominal Exam: Soft, Normal Bowel Sounds. absent: Tenderness - Extremities Exam Extremities Exam: Normal Inspection. absent: Pedal Edema, Tenderness - Back Exam Back Exam: Full ROM, NORMAL INSPECTION - Neurological Exam Neurological Exam: Alert, Awake, CN II-XII Intact. absent: Oriented x3 - Psychiatric Exam Psychiatric exam: Normal Affect, Normal Mood - Skin Skin Exam: Dry, Intact, Normal Color, Warm Assessment and Plan - Assessment and Plan (Free Text) Assessment: Fever of unknown origin WBC 6.0 from 4.8 Febrile overnight last 24H, Tmax 100.7 Tylenol PRN Cipro 400mg Q12h - discontinued Throat lozenges for sore throat CXR- 07/02/16- Poor inspiration with low lung volumes and mild crowded bronchovascular markings. Suspect mild bibasilar atelectasis left greater than right. CXR- 07/03/16- PA / Lat- Somewhat limited due to partial obscuration of the medial lung apices by overlying facial soft tissue and mandible artifact. Poor inspiration with llow lung volumes, mild crowded bronchovascular markings and mild bibasilar atelectasis U/A neg Blood cx- neg x 4D Urine Cx- no growth Procalcitonin elevated at 0.5 CT chest- Small B/L effusions and mild atelectasis/scarring changes both lung irving as detailed above. The central pulmonary vasculature also appears slightly increased/congested. Mild cardiomegaly. Repeat U/A neg for nitrates or leuk esterase Bladder scan- PVR 53cc HIV neg Legionella neg Grp A strp neg Throat cxr neg JAIME neg Flu neg Mycoplasma neg UDS pos for opiates Echo w/EF >50%, mild hypokinesis of apical septal wall, no other abnormalities RPR neg V/Q scan- Low probability ventilation perfusion scan for pulmonary embolism. Doppler U/S of LE neg Doppler U/S of UE - neg ESR 30 Lyme neg FU sputum cxr FU C diff FU haptoglobin FU peripheral smear FU HSV ab ID consulted - started Moxifloxacin, following Monitor Intermittent AMS Possible delirium due to fever of unknown origin CT brain w/findings of No acute intracranial hemorrhage. Mild -moderate chronic white matter ischemic changes as above. There also appear to be a few scattered chronic bilateral basal nuclei lacunar type infarcts. Moderate generalized volume loss MRI brain w/findings of Minimal left mastoid air cell opacification. Will continue to monitor and evaluate. Acute Renal Insufficiency BUN/Cr 23/1.7- stable NS@50 Monito DM ISS Accuchecks A1c 7.9 Diabetic diet Re-inforced need to be compliant with diabetic medications to pt HTN Cont home med: Asa 81mg PO Daily, Lisinopril 10mg PO Daily, Toprol XL 50mg PO Daily HLD Cont home med: Crestor 5mg PO HS Constipation Cont home med: Dulcolax 10mg PO HS GI/DVT ppx SCDs Pepcid 20mg PO BID Heparin 5000U SC Q12h Encourage pt to be OOBTC DW attending <Kristopher Moreno H - Last Filed: 07/07/16 16:19> Objective - Vital Signs/Intake and Output Vital Signs (last 24 hours): Temp Pulse Resp BP Pulse Ox 100.7 F H 82 20 147/81 99 07/07/16 07:37 07/07/16 07:15 07/07/16 07:15 07/07/16 07:15 07/07/16 07:15 Intake and Output: 07/07/16 07/07/16 06:59 18:59 Intake Total 640 Balance 640 - Medications Medications: Current Medications Acetaminophen (Tylenol 325mg Tab) 650 mg PO Q6 PRN PRN Reason: Fever >100.4 F Last Admin: 07/07/16 07:37 Dose: 650 mg Albuterol/Ipratropium (Duoneb 3 Mg/0.5 Mg (3 Ml) Ud) 3 ml INH RQ6 [facility] Last Admin: 07/07/16 13:35 Dose: 3 ml Aspirin (Ecotrin) 81 mg PO DAILY [facility] Last Admin: 07/07/16 10:34 Dose: 81 mg Benzocaine/Menthol (Cepacol Sore Throat) 1 chris MT Q2H PRN PRN Reason: Sore Throat Bisacodyl (Dulcolax) 10 mg PO HS [facility] Last Admin: 07/06/16 21:34 Dose: 10 mg Famotidine (Pepcid) 20 mg PO DAILY [facility] Last Admin: 07/07/16 10:34 Dose: 20 mg Guaifenesin (Mucinex La) 600 mg PO BID [facility] Last Admin: 07/07/16 10:34 Dose: 600 mg Sodium Chloride (Sodium Chloride 0.9%) 1,000 mls @ 50 mls/hr IV .Q20H [facility] Last Admin: 07/07/16 03:20 Dose: 50 mls/hr Moxifloxacin HCl (Avelox Iv 400mg/250ml Ns) 250 mls @ 167 mls/hr IVPB Q24H [facility] Last Admin: 07/07/16 10:20 Dose: 167 mls/hr Insulin Aspart (Novolog) 0 unit SC ACHS [facility] PRN Reason: Protocol Last Admin: 07/07/16 12:29 Dose: 1 unit Lisinopril (Zestril) 10 mg PO DAILY [facility] Last Admin: 07/07/16 10:34 Dose: 10 mg Metoprolol Succinate (Toprol Xl) 50 mg PO DAILY [facility] Last Admin: 07/07/16 10:50 Dose: 50 mg Promethazine HCl/Codeine (Phenergan/Codeine Oral Syrup) 5 ml PO Q4 PRN PRN Reason: Cough Last Admin: 07/06/16 03:10 Dose: 5 ml Rosuvastatin Calcium (Crestor) 5 mg PO HS [facility] Last Admin: 07/06/16 21:44 Dose: 5 mg Saccharomyces Boulardii (Florastor) 250 mg PO Q12 [facility] Last Admin: 07/07/16 10:34 Dose: 250 mg - Labs Labs: 07/07/16 07:01 07/07/16 07:01 Attending/Attestation - Attestation I have personally seen and examined this patient.: Yes I have fully participated in the care of the patient.: Yes I have reviewed all pertinent clinical information, including history, physical exam and plan: Yes Notes (Text): Medical Attending: Patient was seen and examined by me. Agree with the above note by the resident. Today the patient was VERY conversational, following commands. He was definantly AAO x 3 when I saw him. Family member was present as well. This is quiet a change from before. So far he has had extensive testing done including CT, MRI of the brain which did not show acute findings. CT of the chest was negative, VQ scan negative, Echo negative for vegetations, and also the CT of the Abd and Pelvis negative. JAIME negative, WBC have been stable. HIV, RPR, Lyme negative. According to family he is now walking ok. Considering my observation of how the patient appeared on Monday - it might have been that he has had some sort of viral illness that he is now recovering from, thank you Kristopher Moreno
[2016-07-07 13:31] LABS: BASOPHIL 1 % (0-2); NEUTROPHIL 57 % (50-75); TOTAL CELLS COUNTED 100
[2016-07-07 13:32] LABS: LARGE PLATELETS PRESENT
--- NOTE | 2016-07-07 14:43 | CP.PCM.CON ---
History of Present Illness - History of Present Illness History of Present Illness: dictated Past Patient History - Past Medical History & Family History Past Medical History?: Yes - Past Social History Smoking Status: Never Smoked - CARDIAC Hx Hypercholesterolemia: Yes Hx Hypertension: Yes - PULMONARY Hx Respiratory Disorders: No Hx Asthma: No Hx Bronchitis: No Hx Chronic Obstructive Pulmonary Disease (COPD): No Hx Emphysema: No Hx Lung Cancer: No Hx Pneumonia: No Hx Pulmonary Edema: No Hx Pulmonary Embolism: No Hx Respiratory Aspiration: No Hx Respiratory Tract Infection: No Hx Sleep Apnea: No Hx Tuberculosis: No - NEUROLOGICAL Hx Neurological Disorder: No Hx Alzheimer's Disease: No HX Cerebrovascular Accident: No Hx Dementia: No Hx Dizziness: No Hx Meningitis: No Hx Migraine: No Hx Multiple Sclerosis: No Hx Paralysis: No Hx Parkinson's Disease: No Hx Seizures: No Hx Syncope: No Hx Transient Ischemic Attacks (TIA): No Hx Vertigo: No - HEENT Hx HEENT Problems: No Hx Blind: No Hx Cataracts: No Hx Deafness: No Hx Difficulty Chewing: No Hx Epistaxis: No Hx Glaucoma: No Hx Macular Degeneration: No Hx Sinusitis: No - RENAL Hx Chronic Kidney Disease: Yes Hx Dialysis: No Hx Kidney Stones: No Hx Neurogenic Bladder: No Hx Pyelonephritis: No Hx Renal (Kidney) Cancer: No Hx Renal Failure: Yes - ENDOCRINE/METABOLIC Hx Endocrine Disorders: Yes Hx Diabetes Mellitus Type 2: Yes - HEMATOLOGICAL/ONCOLOGICAL Hx Blood Disorders: No Hx AIDS: No Hx Anemia: No Hx Blood Transfusions: No Hx Blood Transfusion Reaction: No Hx Bruising: No Hx Cancer: No Hx Chemotherapy: No Hx Cirrhosis: No Hx Gum Bleeding: No Hx Hemophilia: No Hx Hepatitis A: No Hx Hepatitis B: No Hx Hepatitis C: No Hx Human Immunodeficiency Virus (HIV): No Hx Leukemia: No Hx Metastesis: No Hx Shingles: No Hx Sickle Cell Disease: No Hx Unexplained Bleeding: No Hx von Willebrand's Disease: No - INTEGUMENTARY Hx Dermatological Problems: No Hx Basil Cell: No Hx Arora: No Hx Cellulitis: No Hx Eczema: No Hx Melanoma: No Hx Psoriasis: No Hx Squamous Cell: No - MUSCULOSKELETAL/RHEUMATOLOGICAL Hx Musculoskeletal Disorders: No Hx Arthritis: No Hx Back Pain: No Hx Degenerative Joint Disease: No Hx Falls: No Hx Fractures: No Hx Gout: No Hx Herniated Disk: No Hx Myasthenia Gravis: No Hx Osteoarthritis: No Hx Osteomyelitis: No Hx Osteoporosis: No Hx Rhabdomyolysis: No Hx Rheumatoid Arthritis: No Hx Spinal Stenosis: No Hx Unsteady Gait: No - GASTROINTESTINAL Hx Gastrointestinal Disorders: No Hx Bowel Surgery: No Hx Clostridium Difficile: No Hx Colitis: No Hx Colostomy: No Hx Constipation: No Hx Crohn's Disease: No Hx Diarrhea: No Hx Diverticulitis: No Hx Esophageal Varices: No Hx Fatty Liver Disease: No Hx Gall Bladder Disease: No Hx Gastritis: No Hx Gastroesophageal Reflux: No Hx Hemorrhoids: No Hx Ileostomy: No Hx Irritable Bowel: No Hx Liver Failure: No Hx Nausea: No Hx Pancreatitis: No HX Swallowing Problems: No Hx Ulcer: No Hx Vomiting: No - GENITOURINARY/GYNECOLOGICAL Hx Genitourinary Disorders: No Hx Bladder Cancer: No Hx Bladder Stone: No Hx Hematuria: No Hx Incontinence: No Hx Prostate Cancer: No Hx Prostate Problems: No Hx Reproductive Disorders: No Hx Sexually Transmitted Disorders: No Hx Urinary Tract Infection: No - PSYCHIATRIC Hx Substance Use: No - SURGICAL HISTORY Hx Coronary Artery Bypass Graft: Yes (2010) - ANESTHESIA Hx Anesthesia: Yes Hx Anesthesia Reactions: No Meds Allergies/Adverse Reactions: Allergies Allergy/AdvReac Type Severity Reaction Status Date / Time No Known Allergies Allergy Verified 07/01/16 16:37 - Medications Medications: Current Medications Acetaminophen (Tylenol 325mg Tab) 650 mg PO Q6 PRN PRN Reason: Fever >100.4 F Last Admin: 07/07/16 07:37 Dose: 650 mg Albuterol/Ipratropium (Duoneb 3 Mg/0.5 Mg (3 Ml) Ud) 3 ml INH RQ6 [facility] Last Admin: 07/07/16 13:35 Dose: 3 ml Aspirin (Ecotrin) 81 mg PO DAILY [facility] Last Admin: 07/07/16 10:34 Dose: 81 mg Benzocaine/Menthol (Cepacol Sore Throat) 1 chris MT Q2H PRN PRN Reason: Sore Throat Bisacodyl (Dulcolax) 10 mg PO HS [facility] Last Admin: 07/06/16 21:34 Dose: 10 mg Famotidine (Pepcid) 20 mg PO DAILY [facility] Last Admin: 07/07/16 10:34 Dose: 20 mg Guaifenesin (Mucinex La) 600 mg PO BID [facility] Last Admin: 03/23/17 10:34 Dose: 600 mg Sodium Chloride (Sodium Chloride 0.9%) 1,000 mls @ 50 mls/hr IV .Q20H [facility] Last Admin: 07/07/16 03:20 Dose: 50 mls/hr Moxifloxacin HCl (Avelox Iv 400mg/250ml Ns) 250 mls @ 167 mls/hr IVPB Q24H [facility] Last Admin: 07/07/16 10:20 Dose: 167 mls/hr Insulin Aspart (Novolog) 0 unit SC ACHS [facility] PRN Reason: Protocol Last Admin: 07/07/16 12:29 Dose: 1 unit Lisinopril (Zestril) 10 mg PO DAILY [facility] Last Admin: 07/07/16 10:34 Dose: 10 mg Metoprolol Succinate (Toprol Xl) 50 mg PO DAILY [facility] Last Admin: 07/07/16 10:50 Dose: 50 mg Promethazine HCl/Codeine (Phenergan/Codeine Oral Syrup) 5 ml PO Q4 PRN PRN Reason: Cough Last Admin: 07/06/16 03:10 Dose: 5 ml Rosuvastatin Calcium (Crestor) 5 mg PO HS [facility] Last Admin: 07/06/16 21:44 Dose: 5 mg Saccharomyces Boulardii (Florastor) 250 mg PO Q12 [facility] Last Admin: 07/07/16 10:34 Dose: 250 mg Results - Vital Signs Recent Vital Signs: Last Vital Signs Temp 100.7 F H 07/07/16 07:37 Pulse 82 07/07/16 07:15 Resp 20 07/07/16 07:15 BP 147/81 07/07/16 07:15 Pulse Ox 99 07/07/16 07:15 - Labs Result Diagrams: 07/07/16 07:01 07/07/16 07:01 Labs: Laboratory Results - last 24 hr 07/06/16 07/06/16 07/06/16 16:27 17:27 21:06 WBC RBC Hgb Hct MCV MCH MCHC RDW Plt Count MPV Neut % (Auto) Lymph % (Auto) Lea % (Auto) Eos % (Auto) Baso % (Auto) Neut # Lymph # Lea # Eos # Baso # Neutrophils % (Manual) Band Neutrophils % Lymphocytes % (Manual) Monocytes % (Manual) Basophils % (Manual) Platelet Estimate Large Platelets Hypochromasia (manual) Poikilocytosis (manual Anisocytosis (manual) Ovalocytes Sodium Potassium Chloride Carbon Dioxide Anion Gap BUN Creatinine Est GFR ( Amer) Est GFR (Non-Af Amer) POC Glucose (mg/dL) 240 H 160 H Random Glucose Calcium Total Bilirubin AST ALT Alkaline Phosphatase Lactate Dehydrogenase 744 H Total Protein Albumin Globulin Albumin/Globulin Ratio 07/07/16 07/07/16 07/07/16 07:01 07:11 11:49 WBC 6.0 RBC 3.16 L Hgb 10.4 L Hct 31.0 L MCV 98.1 H MCH 32.8 H MCHC 33.4 RDW 14.2 Plt Count 359 MPV 9.0 Neut % (Auto) 71.7 Lymph % (Auto) 13.6 L Lea % (Auto) 11.7 H Eos % (Auto) 2.3 Baso % (Auto) 0.7 Neut # 4.3 Lymph # 0.8 L Lea # 0.7 Eos # 0.1 Baso # 0.0 Neutrophils % (Manual) 57 Band Neutrophils % 15 H* Lymphocytes % (Manual) 14 L Monocytes % (Manual) 13 H Basophils % (Manual) 1 Platelet Estimate Normal Large Platelets Present Hypochromasia (manual) Slight Poikilocytosis (manual Slight Anisocytosis (manual) Slight Ovalocytes Slight Sodium 134 Potassium 4.4 Chloride 99 Carbon Dioxide 20 L Anion Gap 19 BUN 23 H Creatinine 1.7 H Est GFR ( Amer) 48 Est GFR (Non-Af Amer) 40 POC Glucose (mg/dL) 126 H 189 H Random Glucose 128 H Calcium 7.7 L Total Bilirubin 0.6 AST 99 H D ALT 60 Alkaline Phosphatase 108 Lactate Dehydrogenase Total Protein 5.6 L Albumin 2.7 L Globulin 2.9 Albumin/Globulin Ratio 0.9 L
[2016-07-07] MEDS: Bisacodyl 5mg EC Tab PO SCH (21:51)
[2016-07-08] MEDS: Albuterol-Ipratrop 3 mg / 0.5 (3 ml) UD INH SCH ×5 (01:21→19:49)
--- NOTE | 2016-07-08 07:24 | CON ---
DATE: 07/07/2016 CONSULT REQUESTED BY: Dr. Almaguer. This patient is a 70-year-old male. He has a history of diabetes, hypertension , hyperlipidemia, OH status post CABG. CABG was done in [place] __2015___. He came in with acute on chronic renal failure, has fever. The family says that he started to have shaking body last Monday, and he does not take evening medicines unless he eats something sweet. He is noncompliant. Was feeling cold and clammy. Sugar was found to be more than 400. He denied any nausea, vomiting. No shortness of breath, no chest pain, no abdominal pain. No hematuria, hematochezia, numbness or tingling of extremities. SURGICAL HISTORY: Significant for CABG, 3-vessel disease. He is not allergic to any medicines. SOCIAL HISTORY: Significant for he drinks scotch every night, uses chewing tobacco, denies smoking cigarettes. Denies any drug abuse. He smoked 15 years ago. REVIEW OF SYSTEMS: There are chills, fever. No ear, nose, throat problems. No chest pain, no diaphoresis. He is coughing. He seems congested. Denies any abdominal pain, no nausea, no vomiting. No urinary symptoms. Did have myalgias when he came in, and numbness and tingling. He smoked 15 years ago, the daughter says, and has history of hypertension, high cholesterol, diabetes, and a coronary artery graft. He is not allergic to any medicine on my asking. He denied any pain anywhere. Today his temps have been a little better. He had had 100.7. He has been on Cipro and Flagyl, but he is not allergic to any medicine. Temperature today was 98.2, pulse 88, blood pressure 149/81, and respirations are 20. HEAD: Atraumatic, normocephalic. Pupils are reacting to light. He knew where he is. He was more oriented. Sometimes gets confused, according to the daughter. HENT EXAMINATION: Unremarkable. Tongue is moist; has teeth present. NECK: Supple. LUNGS: Have occasional wheeze and sound congested. HEART: S1, S2 regular. ABDOMEN: Soft, nontender, no guarding, no rigidity present. EXTREMITIES: Have no clubbing, or cyanosis. Has some edema on lower extremities. White count is 6, hemoglobin 10.4, hematocrit 31, platelet count is 359. Sodium is 134, potassium 4.4, chloride is 99, CO2 is 20, and creatinine 1.7. At this time I would suggest to DC the IV fluids as he sounds congested, to continue Avelox for now, and to check the sputum culture that was collected yesterday, which is pending. Blood culture, urine cultures are all negative, and his white count is 6, hemoglobin 10.4, hematocrit 31, platelet count is 359. I do not know why they said 15 bands, as he appears comfortable. MEDICATIONS: He is on albuterol, he is on bisacodyl, he is on coverage with insulin, lisinopril, metoprolol. He is on promethazine, and Crestor. I would want to make sure he is on DVT prophylaxis also, which will be important. The last chest x-ray which was done . He also had a VQ scan which was negative, and a ct scan, abdominal and pelvic CT scan, and small bilateral pleural effusions associated with small opacities at the lung bases. So at this time, I would just see where what is his labs like. He is anemic. Just make sure his D-dimers are okay, and continue Avelox. I see now on mycoplasma levels HIV is negative, RPR is negative. Lyme test screening is negative, and group B strep was negative, and Legionella is negative, and influenza A and B antibodies, was negative. Will follow. I think he is congested and has history of alcohol intake daily has bronchitis and increased liver enzymes due to sepsis and medications and alcohol Little Law MD cc: [id number] TT: 07/07/2016 21:58:20 Confirmation # [id number] Dictation # [id number] jose a 07/08/2016 06:23:15 ELAN
[2016-07-08] MEDS: (Novolog) Insulin Aspart, Recombinant 100 u/ml 10 ml vial SC SCH ×4 (07:58→22:23)
[2016-07-08 09:01] LABS: BASO % 0.7 % (0.0-2.0); EOS # 0.1 K/uL (0.0-0.7); EOS % 2.5 % (0.0-4.0); HEMATOCRIT 31.6 % (35.0-51.0); MEAN CELL VOLUME 98.2 fL (80.0-94.0); MEAN CORPUSCULAR HEMOGLOBIN 32.4 pg (27.0-31.0); MEAN PLATELET VOLUME 8.9 fL (7.2-11.7); MONO # 0.5 K/uL (0.0-0.8); MONO % 10.3 % (0.0-10.0); RED CELL DISTRIBUTION WIDTH 14.3 % (11.5-14.5); WHITE BLOOD COUNT 5.1 K/uL (4.8-10.8)
[2016-07-08 09:13] LABS: POTASSIUM 3.7 mmol/L (3.6-5.2)
[2016-07-08 09:16] LABS: ALB/GLOB RATIO 0.9 (1.0-2.1); BILIRUBIN,TOTAL 0.6 mg/dL (0.2-1.3); CALCIUM 7.8 mg/dl (8.6-10.4); TOTAL PROTEIN 5.6 g/dL (6.3-8.3)
[2016-07-08] MEDS: Metoprolol Succinate 50 mg XL Tab PO SCH (10:00)
[2016-07-08] MEDS: Moxifloxacin IV 400mg/250ml NS 250 ML IVPB SCH (11:33)
[2016-07-08] MEDS: guaiFENesin 600 mg ER Tab PO SCH ×2 (11:34→19:21)
[2016-07-08] MEDS: Saccharomyces Boulardi 250 mg Cap PO SCH ×2 (11:35→22:16)
--- NOTE | 2016-07-08 15:49 | PN ---
DATE: 07/08/2016 I came to see the patient today. His relative, his brother, was at the bedside. He says that recent ly his family members have been in [place] and have been coming back and forth and he wanted me to test for malaria, even though patient has not been himself out of the country. The patient spiked a temp to 102.1 this morning again. He denies any complaints at this time, is being fed and denies any abd ominal pain, no nausea, no vomiting. I had ordered a complete metabolic profile and was surprised to see liver enzymes are all elevated and his fever persisted in spite of being on Avelox. He is breat matheus, however, a lot easier. PHYSICAL EXAMINATION: VITAL SIGNS: Temperature is 98.5 now, pulse 82, blood pressure 113/68, respirations are 20. HEENT: Head is atraumatic. NECK: Supple. LUNGS: Clear. No crackles or rales present. HEART: S1, S2 is regular. ABDOMEN: Soft, nontender, no guarding, no rigidity present. EXTREMITIES: Have no edema, clubbing or cyanosis. LABORATORIES: Show JAIME is negative. Hematologically, his white count is 5.1, hemoglobin 10.4, hemat ocrit 31.6, platelet count is 361 and he showed 15 bands yesterday, which I want to make sure. I irma l do a procalcitonin level today. He has high haptoglobin. His liver enzymes show total bilirubin i s 0.6, AST is 272, ALT is 130, and alkaline phosphatase is 176. All the liver enzymes are going up. Either these are from the sepsis or there is something else going on. We will do an LDH level also and do abdominal/gallbladder to look for the gallbladder, if it is acute cholecystitis in this patien t who does not complain much and doing other septic workup also. Since he is a 70-year-old, we will also look into malignancies and we will repeat the labs tomorrow and if he continues to have fever, w e may have to get a hematology/oncology consult also. We will follow. Little Law MD cc: [id number] TT: 07/08/2016 15:48:43 Confirmation # [id number] Dictation # [id number] en
--- NOTE | 2016-07-08 16:38 | US ---
HISTORY: increased lft /sepsis r/o cholecystitis COMPARISON: None. TECHNIQUE: Sonographic evaluation of the abdomen. FINDINGS: LIVER: Measures 13 cm. Normal echogenicity of the liver parenchyma. No intrahepatic bile duct dilatation. GALLBLADDER: The gallbladder is minimally distended. Apparent wall thickening of the gallbladder could be related to underdistention. No shadowing or echogenic calculus identified. According to the technologist, the sonographic Mo's sign was not present. COMMON BILE DUCT: Measures 3-4 mm. No stones. No dilatation. PANCREAS: Limited visualization. RIGHT KIDNEY: Measures 10 x 4.8 x 4.8cm. Normal echogenicity. No calculus, mass, or hydronephrosis. LEFT KIDNEY: Not imaged. SPLEEN: Not imaged. AORTA: No aneurysmal dilatation within the visualized segments of the aorta. IVC: The visualized portions of the IVC appear unremarkable. OTHER FINDINGS: The visualized segments of the portal vein appear patent. IMPRESSION: No sonographic evidence of acute cholecystitis.
--- NOTE | 2016-07-08 19:49 | CP.PCM.PN ---
<Yajaira Baker - Last Filed: 07/08/16 19:49> Subjective - Date & Time of Evaluation Date of Evaluation: 07/08/16 Time of Evaluation: 09:00 - Subjective Subjective: Internal medicine progress note for Dr. Moreno- Yajaira Baker, PGY-1 Pt S & E at bedside. As per pt's son at bedside - pt continues to be AOx2, is stubborn, refusing to eat unless convinced, refuses to ambulate unless convinced. Pt peed the bed overnight. Denies N/V/F/C, SOB, CP, abdominal pain. Objective - Vital Signs/Intake and Output Vital Signs (last 24 hours): Temp Pulse Resp BP Pulse Ox 99 F 85 20 136/64 97 07/08/16 16:00 07/08/16 18:35 07/08/16 16:00 07/08/16 16:00 07/08/16 16:00 Intake and Output: 07/08/16 07/09/16 18:59 06:59 Intake Total 500 Balance 500 - Medications Medications: Current Medications Acetaminophen (Tylenol 325mg Tab) 650 mg PO Q6 PRN PRN Reason: Fever >100.4 F Last Admin: 07/08/16 11:34 Dose: 650 mg Albuterol/Ipratropium (Duoneb 3 Mg/0.5 Mg (3 Ml) Ud) 3 ml INH RQ6 [facility] Last Admin: 07/08/16 14:39 Dose: 3 ml Aspirin (Ecotrin) 81 mg PO DAILY [facility] Last Admin: 07/08/16 11:35 Dose: 81 mg Benzocaine/Menthol (Cepacol Sore Throat) 1 chris MT Q2H PRN PRN Reason: Sore Throat Bisacodyl (Dulcolax) 10 mg PO HS [facility] Last Admin: 07/07/16 21:51 Dose: 10 mg Famotidine (Pepcid) 20 mg PO DAILY [facility] Last Admin: 07/08/16 11:34 Dose: 20 mg Guaifenesin (Mucinex La) 600 mg PO BID [facility] Last Admin: 07/08/16 19:21 Dose: 600 mg Heparin Sodium (Porcine) (Heparin) 5,000 units SC Q8 [facility] Last Admin: 07/08/16 15:55 Dose: Not Given Sodium Chloride (Sodium Chloride 0.9%) 1,000 mls @ 50 mls/hr IV .Q20H [facility] Last Admin: 07/07/16 23:30 Dose: Not Given Moxifloxacin HCl (Avelox Iv 400mg/250ml Ns) 250 mls @ 167 mls/hr IVPB Q24H [facility] Last Admin: 07/08/16 11:33 Dose: 167 mls/hr Insulin Aspart (Novolog) 0 unit SC ACHS [facility] PRN Reason: Protocol Last Admin: 07/08/16 19:23 Dose: 3 unit Lisinopril (Zestril) 10 mg PO DAILY [facility] Last Admin: 07/08/16 11:35 Dose: 10 mg Metoprolol Succinate (Toprol Xl) 50 mg PO DAILY [facility] Last Admin: 07/07/16 10:50 Dose: 50 mg Promethazine HCl/Codeine (Phenergan/Codeine Oral Syrup) 5 ml PO Q4 PRN PRN Reason: Cough Last Admin: 07/06/16 03:10 Dose: 5 ml Saccharomyces Boulardii (Florastor) 250 mg PO Q12 [facility] Last Admin: 07/08/16 11:35 Dose: 250 mg - Labs Labs: 07/08/16 08:55 07/08/16 08:55 - Constitutional Appears: Non-toxic, No Acute Distress - Head Exam Head Exam: ATRAUMATIC, NORMAL INSPECTION, NORMOCEPHALIC - Eye Exam Eye Exam: EOMI, Normal appearance, PERRL Pupil Exam: NORMAL ACCOMODATION, PERRL - ENT Exam ENT Exam: Mucous Membranes Moist, Normal Exam - Neck Exam Neck Exam: Full ROM, Normal Inspection - Respiratory Exam Respiratory Exam: Clear to Ausculation Bilateral, NORMAL BREATHING PATTERN. absent: Rales, Rhonchi, Wheezes - Cardiovascular Exam Cardiovascular Exam: REGULAR RHYTHM, +S1, +S2 - GI/Abdominal Exam GI & Abdominal Exam: Soft, Normal Bowel Sounds. absent: Tenderness - Extremities Exam Extremities Exam: Full ROM, Normal Inspection - Back Exam Back Exam: Full ROM, NORMAL INSPECTION - Neurological Exam Neurological Exam: Alert, Awake. absent: Oriented x3 (AOx2) - Psychiatric Exam Psychiatric exam: Normal Affect, Normal Mood - Skin Skin Exam: Dry, Intact, Normal Color, Warm Assessment and Plan - Assessment and Plan (Free Text) Assessment: Fever of unknown origin WBC 5.1 from 6.0 Febrile overnight last 24H, Tmax 102.1 Tylenol PRN Throat lozenges for sore throat U/A neg Blood cx- neg x 5D Urine Cx- no growth Procalcitonin elevated at 0.5 CT chest- Small B/L effusions and mild atelectasis/scarring changes both lung irving as detailed above. The central pulmonary vasculature also appears slightly increased/congested. Mild cardiomegaly. Repeat U/A neg for nitrates or leuk esterase Echo w/EF >50%, mild hypokinesis of apical septal wall, no other abnormalities V/Q scan- Low probability ventilation perfusion scan for pulmonary embolism. Doppler U/S of LE neg Doppler U/S of UE - neg HIV neg Legionella neg Grp A strp neg Throat cxr neg JAIME neg Flu neg Mycoplasma neg UDS pos for opiates RPR neg ESR 30 Lyme neg C diff neg Hep panel neg Haptoglobin high 538 LDH 770 FU peripheral smear FU HSV ab FU sputum cxr Bandemia of 15 ID consulted - started Moxifloxacin, following Monitor Intermittent AMS Possible delirium due to fever of unknown origin CT brain w/findings of No acute intracranial hemorrhage. Mild -moderate chronic white matter ischemic changes as above. There also appear to be a few scattered chronic bilateral basal nuclei lacunar type infarcts. Moderate generalized volume loss MRI brain w/findings of Minimal left mastoid air cell opacification. Will continue to monitor and evaluate. Acute Renal Insufficiency BUN/Cr 22/1.6- stable NS@50 Monito DM ISS Accuchecks A1c 7.9 Diabetic diet Re-inforced need to be compliant with diabetic medications to pt HTN Cont home med: Asa 81mg PO Daily, Lisinopril 10mg PO Daily, Toprol XL 50mg PO Daily HLD Cont home med: Crestor 5mg PO HS Constipation Cont home med: Dulcolax 10mg PO HS GI/DVT ppx SCDs Pepcid 20mg PO BID Heparin 5000U SC Q12h Encourage pt to be OOBTC, ambulate DW attending <Kristopher Moreno - Last Filed: 07/09/16 07:31> Objective - Vital Signs/Intake and Output Vital Signs (last 24 hours): Temp Pulse Resp BP Pulse Ox 98.4 F 96 H 18 121/64 98 07/09/16 06:01 07/09/16 06:01 07/09/16 06:01 07/09/16 06:01 07/09/16 06:01 Intake and Output: 07/09/16 07/09/16 06:59 18:59 Intake Total 120 Balance 120 - Medications Medications: Current Medications Acetaminophen (Tylenol 325mg Tab) 650 mg PO Q6 PRN PRN Reason: Fever >100.4 F Last Admin: 07/08/16 11:34 Dose: 650 mg Aspirin (Ecotrin) 81 mg PO DAILY [facility] Last Admin: 07/08/16 11:35 Dose: 81 mg Benzocaine/Menthol (Cepacol Sore Throat) 1 chris MT Q2H PRN PRN Reason: Sore Throat Bisacodyl (Dulcolax) 10 mg PO HS [facility] Last Admin: 07/08/16 22:15 Dose: 10 mg Famotidine (Pepcid) 20 mg PO DAILY [facility] Last Admin: 07/08/16 11:34 Dose: 20 mg Guaifenesin (Mucinex La) 600 mg PO BID [facility] Last Admin: 07/08/16 19:21 Dose: 600 mg Heparin Sodium (Porcine) (Heparin) 5,000 units SC Q8 [facility] Last Admin: 07/09/16 05:40 Dose: 5,000 units Sodium Chloride (Sodium Chloride 0.9%) 1,000 mls @ 50 mls/hr IV .Q20H [facility] Last Admin: 07/07/16 23:30 Dose: Not Given Moxifloxacin HCl (Avelox Iv 400mg/250ml Ns) 250 mls @ 167 mls/hr IVPB Q24H [facility] Last Admin: 07/08/16 11:33 Dose: 167 mls/hr Insulin Aspart (Novolog) 0 unit SC ACHS [facility] PRN Reason: Protocol Last Admin: 07/08/16 22:23 Dose: Not Given Lisinopril (Zestril) 10 mg PO DAILY [facility] Last Admin: 07/08/16 11:35 Dose: 10 mg Metoprolol Succinate (Toprol Xl) 50 mg PO DAILY [facility] Last Admin: 07/07/16 10:50 Dose: 50 mg Promethazine HCl/Codeine (Phenergan/Codeine Oral Syrup) 5 ml PO Q4 PRN PRN Reason: Cough Last Admin: 07/06/16 03:10 Dose: 5 ml Saccharomyces Boulardii (Florastor) 250 mg PO Q12 [facility] Last Admin: 07/08/16 22:16 Dose: 250 mg - Labs Labs: 07/08/16 08:55 07/08/16 08:55 Attending/Attestation - Attestation I have personally seen and examined this patient.: Yes I have fully participated in the care of the patient.: Yes I have reviewed all pertinent clinical information, including history, physical exam and plan: Yes Notes (Text): Medical attending: Patient was seen and examined by me. Agree with the above note by the resident. The patient earlier in the morning was in the hallway chair sitting. Later in the day when we formally saw the patient he was answering questions however our ability to communicate with the patient today was limited by language. However like the previous day was following all commands. He still had fever earlier in the morning that day. thank you Kristopher Moreno
[2016-07-08] MEDS: Bisacodyl 5mg EC Tab PO SCH (22:15)
--- NOTE | 2016-07-09 01:16 | CP.PCM.PN ---
<Kristopher Connor - Last Filed: 07/09/16 08:39> Subjective - Date & Time of Evaluation Date of Evaluation: 07/09/16 Time of Evaluation: 12:50 - Subjective Subjective: Internal medicine progress note for Dr. Moreno Patient seen and examined at bedside. No overnight events per nursing. Pt is AAOx2; appears more pleasant and cooperative today. Whole body tremors persist. Pt in no acute distress. Reports he is tolerating diet, however will need to speak with nursing to ascertain compliance with meals. Denies f/c, chest pain, SOB, abdominal pain, n/v, d/c, numbness/tingling or any additional complaints. Objective - Vital Signs/Intake and Output Vital Signs (last 24 hours): Temp Pulse Resp BP Pulse Ox 99 F 85 20 136/64 97 07/08/16 16:00 07/08/16 18:35 07/08/16 16:00 07/08/16 16:00 07/08/16 16:00 Intake and Output: 07/08/16 07/09/16 18:59 06:59 Intake Total 500 Balance 500 - Medications Medications: Current Medications Acetaminophen (Tylenol 325mg Tab) 650 mg PO Q6 PRN PRN Reason: Fever >100.4 F Last Admin: 07/08/16 11:34 Dose: 650 mg Aspirin (Ecotrin) 81 mg PO DAILY [facility] Last Admin: 07/08/16 11:35 Dose: 81 mg Benzocaine/Menthol (Cepacol Sore Throat) 1 chris MT Q2H PRN PRN Reason: Sore Throat Bisacodyl (Dulcolax) 10 mg PO HS [facility] Last Admin: 07/08/16 22:15 Dose: 10 mg Famotidine (Pepcid) 20 mg PO DAILY [facility] Last Admin: 07/08/16 11:34 Dose: 20 mg Guaifenesin (Mucinex La) 600 mg PO BID [facility] Last Admin: 07/08/16 19:21 Dose: 600 mg Heparin Sodium (Porcine) (Heparin) 5,000 units SC Q8 [facility] Last Admin: 07/08/16 22:16 Dose: 5,000 units Sodium Chloride (Sodium Chloride 0.9%) 1,000 mls @ 50 mls/hr IV .Q20H [facility] Last Admin: 07/07/16 23:30 Dose: Not Given Moxifloxacin HCl (Avelox Iv 400mg/250ml Ns) 250 mls @ 167 mls/hr IVPB Q24H [facility] Last Admin: 07/08/16 11:33 Dose: 167 mls/hr Insulin Aspart (Novolog) 0 unit SC ACHS [facility] PRN Reason: Protocol Last Admin: 07/08/16 22:23 Dose: Not Given Lisinopril (Zestril) 10 mg PO DAILY [facility] Last Admin: 07/08/16 11:35 Dose: 10 mg Metoprolol Succinate (Toprol Xl) 50 mg PO DAILY [facility] Last Admin: 07/07/16 10:50 Dose: 50 mg Promethazine HCl/Codeine (Phenergan/Codeine Oral Syrup) 5 ml PO Q4 PRN PRN Reason: Cough Last Admin: 07/06/16 03:10 Dose: 5 ml Saccharomyces Boulardii (Florastor) 250 mg PO Q12 [facility] Last Admin: 07/08/16 22:16 Dose: 250 mg - Labs Labs: 07/08/16 08:55 07/08/16 08:55 - Additional Findings Additional findings: - Constitutional Appears: Non-toxic, No Acute Distress - Head Exam Head Exam: ATRAUMATIC, NORMAL INSPECTION, NORMOCEPHALIC - Eye Exam Eye Exam: EOMI, Normal appearance, PERRL Pupil Exam: NORMAL ACCOMODATION, PERRL - ENT Exam ENT Exam: Mucous Membranes Moist, Normal Exam - Neck Exam Neck Exam: Full ROM, Normal Inspection - Respiratory Exam Respiratory Exam: Clear to Ausculation Bilateral, NORMAL BREATHING PATTERN. absent: Rales, Rhonchi, Wheezes - Cardiovascular Exam Cardiovascular Exam: REGULAR RHYTHM, +S1, +S2 - GI/Abdominal Exam GI & Abdominal Exam: Soft, Normal Bowel Sounds. absent: Tenderness - Extremities Exam Extremities Exam: Full ROM, Normal Inspection - Back Exam Back Exam: Full ROM, NORMAL INSPECTION - Neurological Exam Neurological Exam: Alert, Awake. absent: Oriented x3 (AAOx2) - Psychiatric Exam Psychiatric exam: Normal Affect, Normal Mood - Skin Skin Exam: Dry, Intact, Normal Color, Warm Assessment and Plan - Assessment and Plan (Free Text) Assessment: Fever of unknown origin 07/09: Last temp of 100.3 at midnight 07/08: Febrile overnight last 24H, Tmax 102.1 ID consulted - started Moxifloxacin, following LDH 770 Bandemia of 15 WBC 5.1 from 6.0 FU peripheral smear FU HSV ab UDS pos for opiates Haptoglobin high 538 sputum cxr - Negative Tylenol PRN Throat lozenges for sore throat U/A neg Blood cx- neg x 5D Urine Cx- no growth Procalcitonin elevated at 0.5 CT chest- Small B/L effusions and mild atelectasis/scarring changes both lung irving as detailed above. The central pulmonary vasculature also appears slightly increased/congested. Mild cardiomegaly. Repeat U/A neg for nitrates or leuk esterase Echo w/EF >50%, mild hypokinesis of apical septal wall, no other abnormalities V/Q scan- Low probability ventilation perfusion scan for pulmonary embolism. Doppler U/S of LE neg Doppler U/S of UE - neg HIV neg Legionella neg Grp A strp neg Throat cxr neg JAIME neg Flu neg Mycoplasma neg RPR neg ESR 30 Lyme neg C diff neg Hep panel neg Monitor Intermittent AMS 07/09: Pt AAOx2 - appears more lucid today, pleasant mood Possible delirium due to fever of unknown origin CT brain w/findings of No acute intracranial hemorrhage. Mild -moderate chronic white matter ischemic changes as above. There also appear to be a few scattered chronic bilateral basal nuclei lacunar type infarcts. Moderate generalized volume loss MRI brain w/findings of Minimal left mastoid air cell opacification. Will continue to monitor and evaluate. Acute Renal Insufficiency Continue to monitor BUN/Cr /.6- stable NS@50 DM ISS Accuchecks A1c 7.9 Diabetic diet Re-inforced need to be compliant with diabetic medications to pt HTN 07/09: WNL, monitor Cont home med: Asa 81mg PO Daily, Lisinopril 10mg PO Daily, Toprol XL 50mg PO Daily HLD Cont home med: Crestor 5mg PO HS Constipation Cont home med: Dulcolax 10mg PO HS GI/DVT ppx SCDs Pepcid 20mg PO BID Heparin 5000U SC Q12h Encourage pt to be OOBTC, ambulate <Moreno,Peter H - Last Filed: 07/09/16 18:13> Objective - Vital Signs/Intake and Output Vital Signs (last 24 hours): Temp Pulse Resp BP Pulse Ox 97.9 F 72 20 154/79 H 97 07/09/16 16:42 07/09/16 16:42 07/09/16 16:42 07/09/16 16:42 07/09/16 16:42 Intake and Output: 07/09/16 07/09/16 06:59 18:59 Intake Total 120 500 Balance 120 500 - Medications Medications: Current Medications Acetaminophen (Tylenol 325mg Tab) 650 mg PO Q6 PRN PRN Reason: Fever >100.4 F Last Admin: 07/08/16 11:34 Dose: 650 mg Aspirin (Ecotrin) 81 mg PO DAILY [facility] Last Admin: 07/09/16 10:21 Dose: 81 mg Benzocaine/Menthol (Cepacol Sore Throat) 1 chris MT Q2H PRN PRN Reason: Sore Throat Bisacodyl (Dulcolax) 10 mg PO HS [facility] Last Admin: 07/08/16 22:15 Dose: 10 mg Famotidine (Pepcid) 20 mg PO DAILY [facility] Last Admin: 07/09/16 10:21 Dose: 20 mg Guaifenesin (Mucinex La) 600 mg PO BID [facility] Last Admin: 07/09/16 17:55 Dose: 600 mg Heparin Sodium (Porcine) (Heparin) 5,000 units SC Q8 [facility] Last Admin: 07/09/16 14:48 Dose: 5,000 units Moxifloxacin HCl (Avelox Iv 400mg/250ml Ns) 250 mls @ 167 mls/hr IVPB Q24H [facility] Last Admin: 07/09/16 10:24 Dose: 167 mls/hr Insulin Aspart (Novolog) 0 unit SC ACHS [facility] PRN Reason: Protocol Last Admin: 07/09/16 17:54 Dose: 3 unit Lisinopril (Zestril) 10 mg PO DAILY [facility] Last Admin: 07/09/16 10:24 Dose: 10 mg Metoprolol Succinate (Toprol Xl) 50 mg PO DAILY [facility] Last Admin: 07/09/16 10:22 Dose: 50 mg Promethazine HCl/Codeine (Phenergan/Codeine Oral Syrup) 5 ml PO Q4 PRN PRN Reason: Cough Last Admin: 07/06/16 03:10 Dose: 5 ml Saccharomyces Boulardii (Florastor) 250 mg PO Q12 [facility] Last Admin: 07/09/16 10:21 Dose: 250 mg - Labs Labs: 07/09/16 08:31 07/09/16 08:31 Attending/Attestation - Attestation I have personally seen and examined this patient.: Yes I have fully participated in the care of the patient.: Yes I have reviewed all pertinent clinical information, including history, physical exam and plan: Yes Notes (Text): Medical Attending: Patient was seen and examined by me. Agree with the above note by the resident. The patient was awake, very conversational at times - other times he appeared to be upset with us. As mentioned before he's had extensive testing done so far because of this fever of unknown origin. With family member present, he DENIED having chest pain, denied abdominal pain, denied headache, denied blurry vision. He walked into the hallway - family said that his walking was at baseline. I explained to family that will need to wait and hopefully he can be without a fever for at least 24hrs thank you Kristopher Moreno
[2016-07-09 08:43] LABS: BASO # 0.1 K/uL (0.0-0.2); EOS # 0.2 K/uL (0.0-0.7); EOS % 3.6 % (0.0-4.0); HEMATOCRIT 30.8 % (35.0-51.0); LYMPH # 1.1 K/uL (1.0-4.3); MEAN CORPUSCULAR HEMOGLOBIN 32.5 pg (27.0-31.0); MEAN CORPUSCULAR HGB CONC 32.8 g/dL (33.0-37.0); MONO # 0.7 K/uL (0.0-0.8); MONO % 10.1 % (0.0-10.0); RED CELL DISTRIBUTION WIDTH 14.4 % (11.5-14.5); WHITE BLOOD COUNT 6.8 K/uL (4.8-10.8)
[2016-07-09 08:49] LABS: POTASSIUM 4.5 mmol/L (3.6-5.2)
[2016-07-09 08:50] VITALS: RESP 20
[2016-07-09 08:52] LABS: BILIRUBIN,TOTAL 0.8 mg/dL (0.2-1.3); TOTAL PROTEIN 5.7 g/dL (6.3-8.3)
[2016-07-09 08:53] LABS: CALCIUM 7.5 mg/dl (8.6-10.4)
[2016-07-09 09:51] LABS: INTRACELLULAR PARASITE NEGATIVE (NEGATIVE)
[2016-07-09] MEDS: (Novolog) Insulin Aspart, Recombinant 100 u/ml 10 ml vial SC SCH ×4 (10:09→23:58)
[2016-07-09] MEDS: guaiFENesin 600 mg ER Tab PO SCH ×2 (10:21→17:55)
[2016-07-09] MEDS: Saccharomyces Boulardi 250 mg Cap PO SCH ×2 (10:21→21:21)
[2016-07-09] MEDS: Metoprolol Succinate 50 mg XL Tab PO SCH (10:22)
[2016-07-09] MEDS: Moxifloxacin IV 400mg/250ml NS 250 ML IVPB SCH (10:24)
--- NOTE | 2016-07-09 20:37 | CP.PCM.PN ---
Subjective - Date & Time of Evaluation Date of Evaluation: 07/09/16 Time of Evaluation: 03:00 - Subjective Subjective: dictated Objective - Vital Signs/Intake and Output Vital Signs (last 24 hours): Temp Pulse Resp BP Pulse Ox 97.9 F 72 20 154/79 H 97 07/09/16 16:42 07/09/16 16:42 07/09/16 16:42 07/09/16 16:42 07/09/16 16:42 Intake and Output: 07/09/16 07/10/16 18:59 06:59 Intake Total 500 Balance 500 - Medications Medications: Current Medications Acetaminophen (Tylenol 325mg Tab) 650 mg PO Q6 PRN PRN Reason: Fever >100.4 F Last Admin: 07/08/16 11:34 Dose: 650 mg Aspirin (Ecotrin) 81 mg PO DAILY [facility] Last Admin: 07/09/16 10:21 Dose: 81 mg Benzocaine/Menthol (Cepacol Sore Throat) 1 chris MT Q2H PRN PRN Reason: Sore Throat Bisacodyl (Dulcolax) 10 mg PO HS [facility] Last Admin: 07/08/16 22:15 Dose: 10 mg Famotidine (Pepcid) 20 mg PO DAILY [facility] Last Admin: 07/09/16 10:21 Dose: 20 mg Guaifenesin (Mucinex La) 600 mg PO BID [facility] Last Admin: 07/09/16 17:55 Dose: 600 mg Heparin Sodium (Porcine) (Heparin) 5,000 units SC Q8 [facility] Last Admin: 07/09/16 14:48 Dose: 5,000 units Moxifloxacin HCl (Avelox Iv 400mg/250ml Ns) 250 mls @ 167 mls/hr IVPB Q24H [facility] Last Admin: 07/09/16 10:24 Dose: 167 mls/hr Insulin Aspart (Novolog) 0 unit SC ACHS [facility] PRN Reason: Protocol Last Admin: 07/09/16 17:54 Dose: 3 unit Lisinopril (Zestril) 10 mg PO DAILY [facility] Last Admin: 07/09/16 10:24 Dose: 10 mg Metoprolol Succinate (Toprol Xl) 50 mg PO DAILY [facility] Last Admin: 07/09/16 10:22 Dose: 50 mg Promethazine HCl/Codeine (Phenergan/Codeine Oral Syrup) 5 ml PO Q4 PRN PRN Reason: Cough Last Admin: 07/06/16 03:10 Dose: 5 ml Saccharomyces Boulardii (Florastor) 250 mg PO Q12 [facility] Last Admin: 07/09/16 10:21 Dose: 250 mg - Labs Labs: 07/09/16 08:31 07/09/16 08:31
[2016-07-09] MEDS: Bisacodyl 5mg EC Tab PO SCH (21:21)
--- NOTE | 2016-07-10 00:05 | CP.PCM.PN ---
<Kristopher Connor - Last Filed: 07/10/16 00:03> Subjective - Date & Time of Evaluation Date of Evaluation: 07/10/16 Time of Evaluation: 00:00 - Subjective Subjective: Internal medicine progress note for Dr. Moreno Patient seen and examined at bedside. No overnight events per nursing. Pt is AAOx2; appears more pleasant and cooperative today. Whole body tremors persist. Pt in no acute distress. Reports he is tolerating diet, however will need to speak with nursing to ascertain compliance with meals. Denies f/c, chest pain, SOB, abdominal pain, n/v, d/c, numbness/tingling or any additional complaints. Objective - Vital Signs/Intake and Output Vital Signs (last 24 hours): Temp Pulse Resp BP Pulse Ox 98.7 F 79 20 148/80 96 07/09/16 23:35 07/09/16 23:35 07/09/16 23:35 07/09/16 23:35 07/09/16 23:35 Intake and Output: 07/09/16 07/10/16 18:59 06:59 Intake Total 500 Balance 500 - Medications Medications: Current Medications Acetaminophen (Tylenol 325mg Tab) 650 mg PO Q6 PRN PRN Reason: Fever >100.4 F Last Admin: 07/08/16 11:34 Dose: 650 mg Aspirin (Ecotrin) 81 mg PO DAILY [facility] Last Admin: 07/09/16 10:21 Dose: 81 mg Benzocaine/Menthol (Cepacol Sore Throat) 1 chris MT Q2H PRN PRN Reason: Sore Throat Bisacodyl (Dulcolax) 10 mg PO HS [facility] Last Admin: 07/09/16 21:21 Dose: 10 mg Famotidine (Pepcid) 20 mg PO DAILY [facility] Last Admin: 07/09/16 10:21 Dose: 20 mg Guaifenesin (Mucinex La) 600 mg PO BID [facility] Last Admin: 07/09/16 17:55 Dose: 600 mg Heparin Sodium (Porcine) (Heparin) 5,000 units SC Q8 [facility] Last Admin: 07/09/16 21:21 Dose: 5,000 units Moxifloxacin HCl (Avelox Iv 400mg/250ml Ns) 250 mls @ 167 mls/hr IVPB Q24H [facility] Last Admin: 07/09/16 10:24 Dose: 167 mls/hr Insulin Aspart (Novolog) 0 unit SC ACHS [facility] PRN Reason: Protocol Last Admin: 07/09/16 23:58 Dose: Not Given Lisinopril (Zestril) 10 mg PO DAILY [facility] Last Admin: 07/09/16 10:24 Dose: 10 mg Metoprolol Succinate (Toprol Xl) 50 mg PO DAILY [facility] Last Admin: 07/09/16 10:22 Dose: 50 mg Promethazine HCl/Codeine (Phenergan/Codeine Oral Syrup) 5 ml PO Q4 PRN PRN Reason: Cough Last Admin: 07/06/16 03:10 Dose: 5 ml Saccharomyces Boulardii (Florastor) 250 mg PO Q12 [facility] Last Admin: 07/09/16 21:21 Dose: 250 mg - Labs Labs: 07/09/16 08:31 07/09/16 08:31 - Additional Findings Additional findings: - Constitutional Appears: Non-toxic, No Acute Distress - Head Exam Head Exam: ATRAUMATIC, NORMAL INSPECTION, NORMOCEPHALIC - Eye Exam Eye Exam: EOMI, Normal appearance, PERRL Pupil Exam: NORMAL ACCOMODATION, PERRL - ENT Exam ENT Exam: Mucous Membranes Moist, Normal Exam - Neck Exam Neck Exam: Full ROM, Normal Inspection - Respiratory Exam Respiratory Exam: Clear to Ausculation Bilateral, NORMAL BREATHING PATTERN. absent: Rales, Rhonchi, Wheezes - Cardiovascular Exam Cardiovascular Exam: REGULAR RHYTHM, +S1, +S2 - GI/Abdominal Exam GI & Abdominal Exam: Soft, Normal Bowel Sounds. absent: Tenderness - Extremities Exam Extremities Exam: Full ROM, Normal Inspection - Back Exam Back Exam: Full ROM, NORMAL INSPECTION - Neurological Exam Neurological Exam: Alert, Awake. absent: Oriented x3 (AAOx2) - Psychiatric Exam Psychiatric exam: Normal Affect, Normal Mood - Skin Skin Exam: Dry, Intact, Normal Color, Warm Assessment and Plan - Assessment and Plan (Free Text) Assessment: Fever of unknown origin 07/09: Last temp of 100.3 at midnight 07/08: Febrile overnight last 24H, Tmax 102.1 ID consulted - started Moxifloxacin, following LDH 770 Bandemia of 15 WBC 5.1 from 6.0 FU peripheral smear FU HSV ab UDS pos for opiates Haptoglobin high 538 sputum cxr - Negative Tylenol PRN Throat lozenges for sore throat U/A neg Blood cx- neg x 5D Urine Cx- no growth Procalcitonin elevated at 0.5 CT chest- Small B/L effusions and mild atelectasis/scarring changes both lung irving as detailed above. The central pulmonary vasculature also appears slightly increased/congested. Mild cardiomegaly. Repeat U/A neg for nitrates or leuk esterase Echo w/EF >50%, mild hypokinesis of apical septal wall, no other abnormalities V/Q scan- Low probability ventilation perfusion scan for pulmonary embolism. Doppler U/S of LE neg Doppler U/S of UE - neg HIV neg Legionella neg Grp A strp neg Throat cxr neg JAIME neg Flu neg Mycoplasma neg RPR neg ESR 30 Lyme neg C diff neg Hep panel neg Monitor Intermittent AMS 07/09: Pt AAOx2 - appears more lucid today, pleasant mood Possible delirium due to fever of unknown origin CT brain w/findings of No acute intracranial hemorrhage. Mild -moderate chronic white matter ischemic changes as above. There also appear to be a few scattered chronic bilateral basal nuclei lacunar type infarcts. Moderate generalized volume loss MRI brain w/findings of Minimal left mastoid air cell opacification. Will continue to monitor and evaluate. Acute Renal Insufficiency Continue to monitor BUN/Cr 22/.6- stable NS@50 DM ISS Accuchecks A1c 7.9 Diabetic diet Re-inforced need to be compliant with diabetic medications to pt HTN 07/09: WNL, monitor Cont home med: Asa 81mg PO Daily, Lisinopril 10mg PO Daily, Toprol XL 50mg PO Daily HLD Cont home med: Crestor 5mg PO HS Constipation Cont home med: Dulcolax 10mg PO HS GI/DVT ppx SCDs Pepcid 20mg PO BID Heparin 5000U SC Q12h Encourage pt to be OOBTC, ambulate <MorenoPeter H - Last Filed: 07/10/16 10:59> Objective - Vital Signs/Intake and Output Vital Signs (last 24 hours): Temp Pulse Resp BP Pulse Ox 98.7 F 79 20 148/80 96 07/09/16 23:35 07/09/16 23:35 07/09/16 23:35 07/09/16 23:35 07/09/16 23:35 Intake and Output: 07/10/16 07/10/16 06:59 18:59 Intake Total 150 Balance 150 - Medications Medications: Current Medications Acetaminophen (Tylenol 325mg Tab) 650 mg PO Q6 PRN PRN Reason: Fever >100.4 F Last Admin: 07/08/16 11:34 Dose: 650 mg Aspirin (Ecotrin) 81 mg PO DAILY [facility] Last Admin: 07/10/16 09:35 Dose: 81 mg Benzocaine/Menthol (Cepacol Sore Throat) 1 chris MT Q2H PRN PRN Reason: Sore Throat Bisacodyl (Dulcolax) 10 mg PO HS [facility] Last Admin: 07/09/16 21:21 Dose: 10 mg Famotidine (Pepcid) 20 mg PO DAILY [facility] Last Admin: 07/10/16 09:35 Dose: 20 mg Guaifenesin (Mucinex La) 600 mg PO BID [facility] Last Admin: 07/10/16 09:35 Dose: 600 mg Heparin Sodium (Porcine) (Heparin) 5,000 units SC Q8 [facility] Last Admin: 07/10/16 06:01 Dose: 5,000 units Moxifloxacin HCl (Avelox Iv 400mg/250ml Ns) 250 mls @ 167 mls/hr IVPB Q24H [facility] Last Admin: 07/10/16 09:34 Dose: 167 mls/hr Insulin Aspart (Novolog) 0 unit SC ACHS [facility] PRN Reason: Protocol Last Admin: 07/10/16 08:05 Dose: 1 unit Lisinopril (Zestril) 10 mg PO DAILY [facility] Last Admin: 07/10/16 09:35 Dose: 10 mg Metoprolol Succinate (Toprol Xl) 50 mg PO DAILY [facility] Last Admin: 07/10/16 09:35 Dose: 50 mg Promethazine HCl/Codeine (Phenergan/Codeine Oral Syrup) 5 ml PO Q4 PRN PRN Reason: Cough Last Admin: 07/06/16 03:10 Dose: 5 ml Saccharomyces Boulardii (Florastor) 250 mg PO Q12 [facility] Last Admin: 07/10/16 09:35 Dose: 250 mg - Labs Labs: 07/09/16 08:31 07/09/16 08:31 Attending/Attestation - Attestation I have personally seen and examined this patient.: Yes I have fully participated in the care of the patient.: Yes I have reviewed all pertinent clinical information, including history, physical exam and plan: Yes Notes (Text): Medical Attending: Patient was seen and examined by me, agree with the above note by resident - however I should point out that labs have not been present yet. This being said the temperature was 98.3 recently. The patient was awake and alert, I asked him if he had eaten this morning and he said "Not right now" and then on exam I asked if he could walk with me, and he responded "I am sleeping right now, later please" As mentioned yesterday he was able to walk into the hallway with family and appeared to be at his baseline gait per family present. Family is currently not present at the moment. thank you Kristopher Moreno
[2016-07-10] MEDS: (Novolog) Insulin Aspart, Recombinant 100 u/ml 10 ml vial SC SCH ×4 (08:05→22:54)
[2016-07-10] MEDS: Moxifloxacin IV 400mg/250ml NS 250 ML IVPB SCH (09:34)
[2016-07-10] MEDS: Saccharomyces Boulardi 250 mg Cap PO SCH ×2 (09:35→21:00)
[2016-07-10] MEDS: Metoprolol Succinate 50 mg XL Tab PO SCH (09:35)
[2016-07-10] MEDS: guaiFENesin 600 mg ER Tab PO SCH ×2 (09:35→20:56)
[2016-07-10] MEDS: Bisacodyl 5mg EC Tab PO SCH (21:00)
[2016-07-11 07:35] LABS: HEMATOCRIT 28.1 % (35.0-51.0); MEAN CELL VOLUME 97.9 fL (80.0-94.0); MEAN CORPUSCULAR HEMOGLOBIN 33.8 pg (27.0-31.0); MEAN CORPUSCULAR HGB CONC 34.6 g/dL (33.0-37.0); MEAN PLATELET VOLUME 8.7 fL (7.2-11.7); RED CELL DISTRIBUTION WIDTH 14.2 % (11.5-14.5); WHITE BLOOD COUNT 6.5 K/uL (4.8-10.8)
[2016-07-11 07:39] LABS: CHLORIDE 102 mmol/L (98-107); SODIUM 136 mmol/L (132-148)
[2016-07-11 07:42] LABS: ALKALINE PHOSPHATASE 189 U/L (38-126); ALT/SGPT 107 U/L (21-72); AST/SGOT 96 U/L (17-59); BILIRUBIN,TOTAL 0.5 mg/dL (0.2-1.3); BLOOD UREA NITROGEN 18 mg/dL (9-20); CARBON DIOXIDE 20 mmol/L (22-30); GFR AFRICAN-AMERICAN > 60; GLUCOSE,RANDOM 217 mg/dL (75-110); TOTAL PROTEIN 5.3 g/dL (6.3-8.3)
[2016-07-11 07:43] LABS: CALCIUM 7.8 mg/dl (8.6-10.4)
[2016-07-11] MEDS: (Novolog) Insulin Aspart, Recombinant 100 u/ml 10 ml vial SC SCH ×3 (08:35→17:01)
--- NOTE | 2016-07-11 09:06 | PN ---
DATE: 07/09/2016 SUBJECTIVE: The patient was seen today. He has been afebrile since yesterday for when I last saw him. He has no fevers, no complaint. No nausea, no vomiting, no cough, no shortness of breath, no abdominal pain. His liver enzymes were up; hence, we did hepatitis profile. I also ordered ultrasound and I stopped the Crestor, which he was getting. His ultrasound did not show any acute cholecystitis. He drinks a lot every day according to his family member; hence, I told him that he should stop drinking as his liver enzymes are high, and I am not sure if he will follow through on that when he is discharged , but he is pleasant. He has no new complaints. PHYSICAL EXAMINATION: VITAL SIGNS: Temperature is 97.9, pulse 72, blood pressure 151/82, respirations are 20. HEENT: Head is atraumatic, normocephalic. NECK: Supple. LUNGS: Clear. No crackles or rales present at this time. HEART: S1, S2 regular. ABDOMEN: Soft, nontender, no guarding, no rigidity present. EXTREMITIES: No edema, clubbing or cyanosis. LABORATORY DATA: Noted. Labs show white count is 6.8, hemoglobin 10.1, hematocrit 30.8, platelet count is 383. He remains anemic. BUN is 21, creatinine is 1.5. Liver enzymes are coming down. LDH/lactate dehydrogenase is 770. Procalcitonin came out 0.37. ASSESSMENT AND PLAN: He has clinically improved, and his LDH and liver enzymes should be monitored as outpatient. If he continues to have a fever, he will need a hematology/oncology consult; otherwise, he is free to go. He should be able to go home. He has received antibiotics. He was on Cipro before and now he is on moxifloxacin 3 days. I would give him another 4 days' worth so he has received antibiotics for 7 days, so give Avelox for more days and then he should stop them, and if he remains afebrile, he needs to follow up with his physician in the office. Also as I think he came with bronchitis and fever and he uses alcohol every day and probably had bronchitis when he was admitted, which is probably why he was in shortness of breath. Little Law MD cc: [id number] TT: 07/09/2016 22:45:03 Confirmation # [id number] Dictation # [id number] MTDD
[2016-07-11] MEDS: Moxifloxacin IV 400mg/250ml NS 250 ML IVPB SCH (10:20)
[2016-07-11] MEDS: guaiFENesin 600 mg ER Tab PO SCH ×2 (10:20→17:46)
[2016-07-11] MEDS: Saccharomyces Boulardi 250 mg Cap PO SCH (10:20)
[2016-07-11] MEDS: Metoprolol Succinate 50 mg XL Tab PO SCH (10:32)
--- NOTE | 2016-07-11 14:25 | CP.PCM.DIS ---
<Yajaira Baker - Last Filed: 07/11/16 14:26> Provider - Provider Date of Admission: 07/03/16 21:11 Attending physician: Dev Almaguer MD Primary care physician: [facility] Consults: Maria Eugenia Time Spent in preparation of Discharge (in minutes): 60 Hospital Course - Lab Results Lab Results: Micro Results 07/06/16 10:57 Sputum Gram Stain - Final 07/06/16 10:57 Sputum Sputum Culture - Final NORMAL ORAL JOSE G Most Recent Lab Values WBC 6.5 K/uL (4.8-10.8) 07/11/16 07:14 RBC 2.87 Mil/uL (4.40-5.90) L 07/11/16 07:14 Hgb 9.7 g/dL (12.0-18.0) L 07/11/16 07:14 Hct 28.1 % (35.0-51.0) L 07/11/16 07:14 MCV 97.9 fL (80.0-94.0) H 07/11/16 07:14 MCH 33.8 pg (27.0-31.0) H 07/11/16 07:14 MCHC 34.6 g/dL (33.0-37.0) 07/11/16 07:14 RDW 14.2 % (11.5-14.5) 07/11/16 07:14 Plt Count 424 K/uL (130-400) H 07/11/16 07:14 MPV 8.7 fL (7.2-11.7) 07/11/16 07:14 Neut % (Auto) 69.3 % (50.0-75.0) 07/09/16 08:31 Lymph % (Auto) 16.0 % (20.0-40.0) L 07/09/16 08:31 [place] % (Auto) 10.1 % (0.0-10.0) H 07/09/16 08:31 Eos % (Auto) 3.6 % (0.0-4.0) 07/09/16 08:31 Baso % (Auto) 1.0 % (0.0-2.0) 07/09/16 08:31 Neut # 4.8 K/uL (1.8-7.0) 07/09/16 08:31 Lymph # 1.1 K/uL (1.0-4.3) 07/09/16 08:31 [place] # 0.7 K/uL (0.0-0.8) 07/09/16 08:31 Eos # 0.2 K/uL (0.0-0.7) 07/09/16 08:31 Baso # 0.1 K/uL (0.0-0.2) 07/09/16 08:31 Neutrophils % (Manual) 57 % (50-75) 07/07/16 07:01 Band Neutrophils % 15 % (0-2) H* 07/07/16 07:01 Lymphocytes % (Manual) 14 % (20-40) L 07/07/16 07:01 Monocytes % (Manual) 13 % (0-10) H 07/07/16 07:01 Eosinophils % (Manual) 6 % (0-4) H 07/05/16 07:02 Basophils % (Manual) 1 % (0-2) 07/07/16 07:01 Platelet Estimate Normal (NORMAL) 07/07/16 07:01 Plt Clumps, EDTA Grain Elevator Motor Starter 07/05/16 07:02 Large Platelets Present 07/07/16 07:01 Giant Platelets Present 07/05/16 07:02 RBC Morphology Normal 07/04/16 07:38 Hypochromasia (manual) Slight 07/07/16 07:01 Poikilocytosis (manual Slight 07/07/16 07:01 Anisocytosis (manual) Slight 07/07/16 07:01 Microcytosis (manual) Slight 07/01/16 19:39 Target Cells Slight 07/05/16 07:02 Ovalocytes Slight 07/07/16 07:01 ESR 30 mm/hr (0-15) H 07/05/16 13:50 Haptoglobin 538 mg/dL (43-212) H 07/06/16 17:27 pO2 18 mm/Hg (30-55) L 07/01/16 20:58 VBG pH 7.32 (7.32-7.43) 07/01/16 20:58 VBG pCO2 40 mmHg (40-60) 07/01/16 20:58 VBG HCO3 18.8 mmol/L 07/01/16 20:58 VBG Total CO2 21.8 mmol/L (22-28) L 07/01/16 20:58 VBG O2 Sat (Calc) 24.9 % (40-65) L 07/01/16 20:58 VBG Base Excess -5.2 mmol/L (0.0-2.0) L 07/01/16 20:58 VBG Potassium 4.8 mmol/L (3.6-5.2) 07/01/16 20:58 Sodium 134.0 mmol/l (132-148) 07/01/16 20:58 Chloride 109.0 mmol/L (98-107) H 07/01/16 20:58 Glucose 282 mg/dl (75-110) H 07/01/16 20:58 Lactate 0.9 mmol/L (0.7-2.1) 07/01/16 20:58 Sodium 136 mmol/L (132-148) 07/11/16 07:14 Potassium 4.0 mmol/L (3.6-5.2) 07/11/16 07:14 Chloride 102 mmol/L (98-107) 07/11/16 07:14 Carbon Dioxide 20 mmol/L (22-30) L 07/11/16 07:14 Anion Gap 18 (10-20) 07/11/16 07:14 BUN 18 mg/dL (9-20) 07/11/16 07:14 Creatinine 1.4 MG/DL (0.8-1.5) 07/11/16 07:14 Est GFR ( Amer) > 60 07/11/16 07:14 Est GFR (Non-Af Amer) 50 07/11/16 07:14 POC Glucose (mg/dL) 248 mg/dL (65-110) H 07/11/16 11:46 Random Glucose 217 mg/dL (75-110) H 07/11/16 07:14 Hemoglobin A1c 7.9 % (4.2-6.5) H 07/02/16 09:17 Calcium 7.8 mg/dl (8.6-10.4) L 07/11/16 07:14 Magnesium 1.8 mg/dL (1.6-2.3) 07/04/16 07:38 Total Bilirubin 0.5 mg/dL (0.2-1.3) 07/11/16 07:14 AST 96 U/L (17-59) H 07/11/16 07:14 ALT 107 U/L (21-72) H 07/11/16 07:14 Alkaline Phosphatase 189 U/L (38-126) H 07/11/16 07:14 Lactate Dehydrogenase 770 U/L (313-618) H 07/08/16 16:44 Total Creatine Kinase 191 U/L (55-170) H 07/04/16 14:11 CK-MB (Mass) 1.05 ng/mL (0.0-3.38) 07/04/16 14:11 Troponin I, Quant 0.0320 ng/mL (0.00-0.120) 07/04/16 14:11 Total Protein 5.3 g/dL (6.3-8.3) L 07/11/16 07:14 Albumin 2.6 g/dL (3.5-5.0) L 07/11/16 07:14 Globulin 2.7 gm/dL (2.2-3.9) 07/11/16 07:14 Albumin/Globulin Ratio 1.0 (1.0-2.1) 07/11/16 07:14 Procalcitonin 0.37 NG/ML (0.19-0.49) 07/08/16 16:44 TSH 3rd Generation 2.15 mIU/L (0.46-4.68) 07/04/16 14:11 Venous Blood Potassium 4.8 mmol/L (3.6-5.2) 07/01/16 20:58 Urine Color Yellow (YELLOW) 07/04/16 14:58 Urine Clarity Clear (Clear) 07/04/16 14:58 Urine pH 5.0 (5.0-8.0) 07/04/16 14:58 Ur Specific [place] 1.010 (1.003-1.030) 07/04/16 14:58 Urine Protein 1+ mg/dL (NEGATIVE) H 07/04/16 14:58 Urine Glucose (UA) Normal mg/dL (Normal) 07/04/16 14:58 Urine Ketones Trace mg/dL (NEGATIVE) 07/04/16 14:58 Urine Blood 1+ (NEGATIVE) H 07/04/16 14:58 Urine Nitrate Negative (NEGATIVE) 07/04/16 14:58 Urine Bilirubin Negative (NEGATIVE) 07/04/16 14:58 Urine Urobilinogen Normal mg/dL (0.2-1.0) 07/04/16 14:58 Ur Leukocyte Esterase Trace Neli/uL (Negative) 07/04/16 14:58 Urine WBC (Auto) 2 /hpf (0-5) 07/04/16 14:58 Urine RBC (Auto) < 1 /hpf (0-3) 07/04/16 14:58 Ur Squamous Epith Cells 1 /hpf (0-5) 07/01/16 19:43 Amorphous Sediment Moderate /ul (<OCC) H 07/01/16 19:43 Urine Bacteria Rare (<OCC) 07/01/16 19:43 Urine Opiates Screen Positive (NEGATIVE) 07/05/16 20:15 Urine Methadone Screen Negative (NEGATIVE) 07/05/16 20:15 Ur Barbiturates Screen Negative (NEGATIVE) 07/05/16 20:15 Ur Phencyclidine Scrn Negative (NEGATIVE) 07/05/16 20:15 Ur Amphetamines Screen Negative (NEGATIVE) 07/05/16 20:15 U Benzodiazepines Scrn Negative (NEGATIVE) 07/05/16 20:15 U Oth Cocaine Metabols Negative (NEGATIVE) 07/05/16 20:15 U Cannabinoids Screen Negative (NEGATIVE) 07/05/16 20:15 JAIME 6 Profile Negative (NEGATIVE) 07/05/16 13:50 RPR Nonreactive (NONREACTIVE) 07/05/16 13:50 Lyme Disease Screen 0.21 (0.00-0.90) 07/05/16 13:50 C. difficile Ag & Toxin Negative (NEGATIVE) 07/05/16 10:03 Hepatitis A IgM Ab Negative (NEGATIVE) 07/08/16 16:44 Hep Bs Antigen Negative (NEGATIVE) 07/08/16 16:44 Hep B Core IgM Ab Negative (NEGATIVE) 07/08/16 16:44 Hepatitis C Antibody Negative (NEGATIVE) 07/08/16 16:44 HIV 1&2 Ag/Ab, 4th Gen Nonreactive (Nonreactive) 07/05/16 13:50 HIV 1&2 Antibody Screen Negative (NEGATIVE) 07/05/16 13:50 Influenza Typ A,B (EIA) Negative for flu a/b (NEGATIVE) 07/02/16 03:09 Ur L.pneumophila Ag Negative (NEGATIVE) 07/03/16 Unknown Blood Parasites Smear Negative (NEGATIVE) 07/08/16 16:44 Mycoplasma pneumon IgG <=0.90 (<=0.90) 07/03/16 20:41 Mycoplasma pneumon IgM 11 U/mL (<770) 07/03/16 20:41 Grp A Beta Strep Ag Negative (NEGATIVE) 07/03/16 11:41 - Hospital Course Hospital Course: 70M w/DM, HTN, HLD, 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 History supplemented by [id number]- they report that pt had abnormal behavior on day of admission, was "talking low", had whole body shaking , complaining of fever, temperature taken at home was 1013. They report that pt does not take evening diabetes medication unless he eats something sweet. Pt has not been to see PMD in approximately 1 yr. Pt admits to F/C, feels cold, myalgias, cough. Pt denies N/V, SOB, CP, abdominal pain, headache, vision changes, changes to bowel or bladder habits, polyphagia, polydipsia, hematuria, hematochezia, numbness or tingling of extremities. Pt admitted to hospital for kidney injury and fevers of unknown origin w/ altered mental status - during course of hospitalization kidney function resolved. Pt was worked up for origin of fevers, all tests were negative excluding ESR- which was high, Pt had bandemia of 15 on hospital day 7, which resolved, Haptoglobin was high at 538, LDH was high at 770. Other testing included Hgb A1c, which was high at 7.9; AST and ALT were elevated but trended down. Pt seen/evaluated by ID with recommmendations for antibiotic treatments. Pt stopped having fevers on hospital day 8. Pt's mental status resolved to baseline by hospital day 10. Pt stable and ready for discharge as per ID and medicine teams with instructions for close follow up in the [facility] clinic. Will be discharged on 2 more days of antibiotics. Diagnoses: Fever of unknown origin, bronchitisn acute renal insufficiency, diabetes, HTN, HLD, anemia of chronic disease Please see EMR for full record of hospital stay. - Date & Time of H&P Date of H&P: 07/02/16 Time of H&P: 01:18 Discharge Exam - Head Exam Head Exam: ATRAUMATIC, NORMAL INSPECTION, NORMOCEPHALIC - Eye Exam Eye Exam: EOMI, Normal appearance, PERRL Pupil Exam: NORMAL ACCOMODATION, PERRL - ENT Exam ENT Exam: Mucous Membranes Moist, Normal Exam - Neck Exam Neck exam: Full Rom, Normal Inspection - Respiratory Exam Respiratory Exam: Clear to PA & Lateral, NORMAL BREATHING PATTERN, UNREMARKABLE. absent: Rales, Rhonchi, Wheezes, Respiratory Distress, Stridor - Cardiovascular Exam Cardiovascular Exam: REGULAR RHYTHM, +S1, +S2 - GI/Abdominal Exam GI & Abdominal Exam: Normal Bowel Sounds, Soft, Unremarkable. absent: Distended , Firm, Guarding, Hernia, Tenderness - Extremities Exam Extremities exam: normal inspection, pedal edema (trace B/L) - Neurological Exam Neurological exam: Alert, CN II-XII Intact, Oriented x3 - Psychiatric Exam Psychiatric exam: Normal Affect, Normal Mood - Skin Skin Exam: Dry, Intact, Warm Additional comments: Right abdomen with white discoloration over RLQ Discharge Plan - Discharge Medications Prescriptions: Moxifloxacin [Avelox] 400 mg PO DAILY #2 tab - Follow Up Plan Condition: STABLE Disposition: HOME/ ROUTINE Instructions: Moxifloxacin (By mouth), Acute Kidney Injury (DC), Chronic Kidney Disease (DC), Fever in Adults (GEN), Diabetic Foot Care (DC), Meal Planning with Diabetes Exchanges (DC) Additional Instructions: Patient stable and cleared for discharge as per Dr. Lopez. Patient is to follow up with the [facility] within 1 week after hospitalization. Patient is to continue antibiotics for 2 more days after discharge. Please take all medications as directed. Be sure to take your diabetes medications as prescribed. Do not take Crestor until you have been seen in the [facility]- they will tell you when you can re-start that medication. Please discontinue alcohol use. Please return to hospital if you have a recurrence of symptoms. Referrals: Jasmine Valencia MD [Staff Provider] - <Fran Lopez - Last Filed: 07/12/16 10:42> Provider - Provider Date of Admission: 07/03/16 21:11 Attending physician: Dev Almaguer MD Hospital Course - Lab Results Lab Results: Micro Results 07/06/16 10:57 Sputum Gram Stain - Final 07/06/16 10:57 Sputum Sputum Culture - Final NORMAL ORAL JOSE G Most Recent Lab Values WBC 6.5 K/uL (4.8-10.8) 07/11/16 07:14 RBC 2.87 Mil/uL (4.40-5.90) L 07/11/16 07:14 Hgb 9.7 g/dL (12.0-18.0) L 07/11/16 07:14 Hct 28.1 % (35.0-51.0) L 07/11/16 07:14 MCV 97.9 fL (80.0-94.0) H 07/11/16 07:14 MCH 33.8 pg (27.0-31.0) H 07/11/16 07:14 MCHC 34.6 g/dL (33.0-37.0) 07/11/16 07:14 RDW 14.2 % (11.5-14.5) 07/11/16 07:14 Plt Count 424 K/uL (130-400) H 07/11/16 07:14 MPV 8.7 fL (7.2-11.7) 07/11/16 07:14 Neut % (Auto) 69.3 % (50.0-75.0) 07/09/16 08:31 Lymph % (Auto) 16.0 % (20.0-40.0) L 07/09/16 08:31 [place] % (Auto) 10.1 % (0.0-10.0) H 07/09/16 08:31 Eos % (Auto) 3.6 % (0.0-4.0) 07/09/16 08:31 Baso % (Auto) 1.0 % (0.0-2.0) 07/09/16 08:31 Neut # 4.8 K/uL (1.8-7.0) 07/09/16 08:31 Lymph # 1.1 K/uL (1.0-4.3) 07/09/16 08:31 [place] # 0.7 K/uL (0.0-0.8) 07/09/16 08:31 Eos # 0.2 K/uL (0.0-0.7) 07/09/16 08:31 Baso # 0.1 K/uL (0.0-0.2) 07/09/16 08:31 Neutrophils % (Manual) 57 % (50-75) 07/07/16 07:01 Band Neutrophils % 15 % (0-2) H* 07/07/16 07:01 Lymphocytes % (Manual) 14 % (20-40) L 07/07/16 07:01 Monocytes % (Manual) 13 % (0-10) H 07/07/16 07:01 Eosinophils % (Manual) 6 % (0-4) H 07/05/16 07:02 Basophils % (Manual) 1 % (0-2) 07/07/16 07:01 Platelet Estimate Normal (NORMAL) 07/07/16 07:01 Plt Clumps, EDTA Grain Elevator Motor Starter 07/05/16 07:02 Large Platelets Present 07/07/16 07:01 Giant Platelets Present 07/05/16 07:02 RBC Morphology Normal 07/04/16 07:38 Hypochromasia (manual) Slight 07/07/16 07:01 Poikilocytosis (manual Slight 07/07/16 07:01 Anisocytosis (manual) Slight 07/07/16 07:01 Microcytosis (manual) Slight 07/01/16 19:39 Target Cells Slight 07/05/16 07:02 Ovalocytes Slight 07/07/16 07:01 ESR 30 mm/hr (0-15) H 07/05/16 13:50 Haptoglobin 538 mg/dL (43-212) H 07/06/16 17:27 pO2 18 mm/Hg (30-55) L 07/01/16 20:58 VBG pH 7.32 (7.32-7.43) 07/01/16 20:58 VBG pCO2 40 mmHg (40-60) 07/01/16 20:58 VBG HCO3 18.8 mmol/L 07/01/16 20:58 VBG Total CO2 21.8 mmol/L (22-28) L 07/01/16 20:58 VBG O2 Sat (Calc) 24.9 % (40-65) L 07/01/16 20:58 VBG Base Excess -5.2 mmol/L (0.0-2.0) L 07/01/16 20:58 VBG Potassium 4.8 mmol/L (3.6-5.2) 07/01/16 20:58 Sodium 134.0 mmol/l (132-148) 07/01/16 20:58 Chloride 109.0 mmol/L (98-107) H 07/01/16 20:58 Glucose 282 mg/dl (75-110) H 07/01/16 20:58 Lactate 0.9 mmol/L (0.7-2.1) 07/01/16 20:58 Sodium 136 mmol/L (132-148) 07/11/16 07:14 Potassium 4.0 mmol/L (3.6-5.2) 07/11/16 07:14 Chloride 102 mmol/L (98-107) 07/11/16 07:14 Carbon Dioxide 20 mmol/L (22-30) L 07/11/16 07:14 Anion Gap 18 (10-20) 07/11/16 07:14 BUN 18 mg/dL (9-20) 07/11/16 07:14 Creatinine 1.4 MG/DL (0.8-1.5) 07/11/16 07:14 Est GFR ( Amer) > 60 07/11/16 07:14 Est GFR (Non-Af Amer) 50 07/11/16 07:14 POC Glucose (mg/dL) 251 mg/dL (65-110) H 07/11/16 16:29 Random Glucose 217 mg/dL (75-110) H 07/11/16 07:14 Hemoglobin A1c 7.9 % (4.2-6.5) H 07/02/16 09:17 Calcium 7.8 mg/dl (8.6-10.4) L 07/11/16 07:14 Magnesium 1.8 mg/dL (1.6-2.3) 07/04/16 07:38 Total Bilirubin 0.5 mg/dL (0.2-1.3) 07/11/16 07:14 AST 96 U/L (17-59) H 07/11/16 07:14 ALT 107 U/L (21-72) H 07/11/16 07:14 Alkaline Phosphatase 189 U/L (38-126) H 07/11/16 07:14 Lactate Dehydrogenase 770 U/L (313-618) H 07/08/16 16:44 Total Creatine Kinase 191 U/L (55-170) H 07/04/16 14:11 CK-MB (Mass) 1.05 ng/mL (0.0-3.38) 07/04/16 14:11 Troponin I, Quant 0.0320 ng/mL (0.00-0.120) 07/04/16 14:11 Total Protein 5.3 g/dL (6.3-8.3) L 07/11/16 07:14 Albumin 2.6 g/dL (3.5-5.0) L 07/11/16 07:14 Globulin 2.7 gm/dL (2.2-3.9) 07/11/16 07:14 Albumin/Globulin Ratio 1.0 (1.0-2.1) 07/11/16 07:14 Procalcitonin 0.37 NG/ML (0.19-0.49) 07/08/16 16:44 TSH 3rd Generation 2.15 mIU/L (0.46-4.68) 07/04/16 14:11 Venous Blood Potassium 4.8 mmol/L (3.6-5.2) 07/01/16 20:58 Urine Color Yellow (YELLOW) 07/04/16 14:58 Urine Clarity Clear (Clear) 07/04/16 14:58 Urine pH 5.0 (5.0-8.0) 07/04/16 14:58 Ur Specific [place] 1.010 (1.003-1.030) 07/04/16 14:58 Urine Protein 1+ mg/dL (NEGATIVE) H 07/04/16 14:58 Urine Glucose (UA) Normal mg/dL (Normal) 07/04/16 14:58 Urine Ketones Trace mg/dL (NEGATIVE) 07/04/16 14:58 Urine Blood 1+ (NEGATIVE) H 07/04/16 14:58 Urine Nitrate Negative (NEGATIVE) 07/04/16 14:58 Urine Bilirubin Negative (NEGATIVE) 07/04/16 14:58 Urine Urobilinogen Normal mg/dL (0.2-1.0) 07/04/16 14:58 Ur Leukocyte Esterase Trace Neli/uL (Negative) 07/04/16 14:58 Urine WBC (Auto) 2 /hpf (0-5) 07/04/16 14:58 Urine RBC (Auto) < 1 /hpf (0-3) 07/04/16 14:58 Ur Squamous Epith Cells 1 /hpf (0-5) 07/01/16 19:43 Amorphous Sediment Moderate /ul (<OCC) H 07/01/16 19:43 Urine Bacteria Rare (<OCC) 07/01/16 19:43 Urine Opiates Screen Positive (NEGATIVE) 07/05/16 20:15 Urine Methadone Screen Negative (NEGATIVE) 07/05/16 20:15 Ur Barbiturates Screen Negative (NEGATIVE) 07/05/16 20:15 Ur Phencyclidine Scrn Negative (NEGATIVE) 07/05/16 20:15 Ur Amphetamines Screen Negative (NEGATIVE) 07/05/16 20:15 U Benzodiazepines Scrn Negative (NEGATIVE) 07/05/16 20:15 U Oth Cocaine Metabols Negative (NEGATIVE) 07/05/16 20:15 U Cannabinoids Screen Negative (NEGATIVE) 07/05/16 20:15 JAIME 6 Profile Negative (NEGATIVE) 07/05/16 13:50 RPR Nonreactive (NONREACTIVE) 07/05/16 13:50 Lyme Disease Screen 0.21 (0.00-0.90) 07/05/16 13:50 C. difficile Ag & Toxin Negative (NEGATIVE) 07/05/16 10:03 Hepatitis A IgM Ab Negative (NEGATIVE) 07/08/16 16:44 Hep Bs Antigen Negative (NEGATIVE) 07/08/16 16:44 Hep B Core IgM Ab Negative (NEGATIVE) 07/08/16 16:44 Hepatitis C Antibody Negative (NEGATIVE) 07/08/16 16:44 HIV 1&2 Ag/Ab, 4th Gen Nonreactive (Nonreactive) 07/05/16 13:50 HIV 1&2 Antibody Screen Negative (NEGATIVE) 07/05/16 13:50 Influenza Typ A,B (EIA) Negative for flu a/b (NEGATIVE) 07/02/16 03:09 Ur L.pneumophila Ag Negative (NEGATIVE) 07/03/16 Unknown Blood Parasites Smear Negative (NEGATIVE) 07/08/16 16:44 Mycoplasma pneumon IgG <=0.90 (<=0.90) 07/03/16 20:41 Mycoplasma pneumon IgM 11 U/mL (<770) 07/03/16 20:41 Grp A Beta Strep Ag Negative (NEGATIVE) 07/03/16 11:41 Attending/Attestation - Attestation I have personally seen and examined this patient.: Yes I have fully participated in the care of the patient.: Yes I have reviewed all pertinent clinical information, including history, physical exam and plan: Yes Notes (Text): Patient admitted with AMS and fever as well as acute renal failure; workup for cause of fever inconclusive with cultures being negative and no source found; Fever has subsided with abx and mental status much improved as well; on avelox, will complete 7 day course at home with PO x 2 days; Renal function also much improved; Mild transaminitis since last few days; holding crestor; should f/u in clinic; Patient otherwise medically stable for d/c home; advised to cut down ETOH intake as he uses ETOH to go to sleep everyday.
[2016-07-11 17:15] VITALS: BP 147/76; PULSE 72; TEMP 98.1; O2SAT 98
== END 2016-07-11 18:52 | disposition home or self-care (01) | DRG 684 ==
LOC: C.ER 16:04 → C.9E 23:29 → C.3T 07-02 00:56 → OBSVTOIN 07-03 21:11
PROVIDERS: ADMIT Family Medicine; ATTEND Family Medicine
DX: N17.9 Acute kidney failure, unspecified (principal); R50.9 Fever, unspecified; I12.9 Hypertensive chronic kidney disease with stage 1 through stage 4 chronic kidney disease, or unspecified chronic kidney disease; E11.22 Type 2 diabetes mellitus with diabetic chronic kidney disease; N18.9 Chronic kidney disease, unspecified; D63.8 Anemia in other chronic diseases classified elsewhere; F10.10 Alcohol abuse, uncomplicated; D72.825 Bandemia; R41.82 Altered mental status, unspecified; E78.5 Hyperlipidemia, unspecified; I25.10 Atherosclerotic heart disease of native coronary artery without angina pectoris; Z72.0 Tobacco use; Z95.1 Presence of aortocoronary bypass graft; I25.2 Old myocardial infarction; Z91.14 Patient's other noncompliance with medication regimen; Z79.84 Long term (current) use of oral hypoglycemic drugs